=== PATIENT | female | born 1960 | race Asian ===

== ENCOUNTER → 2017-10-09 11:23 | Outpatient (CLI) | payer OTHER, SELFPAY ==
[2017-10-09 12:52] LABS: Hemoglobin A1C% w Est Avg Glu 8.9 % (4.0-6.0)
[2017-10-09 13:12] LABS: Calcium 9.6 mg/dL (8.4-10.2); Estimated Glomerular Filt Rate > 60.0 mL/min (>60); Glucose 110 mg/dL (70-100); HEMOLYSIS < 15 (0-50); Sodium 139 mmol/L (137-145)
[2017-10-09 13:20] LABS: Potassium 5.4 mmol/L (3.4-5.1)
[2017-10-09 13:39] LABS: TSH w/ Reflex to FT4 0.38 uIU/mL (0.47-4.68)
[2017-10-09 14:04] LABS: Free T4, Direct Thyroxine 1.47 ng/dL (0.78-2.19)
== END ==
PROVIDERS: PCP Family Medicine; Visit Provider Family Medicine
DX: E11.65 Type 2 diabetes mellitus with hyperglycemia (principal); E03.9 Hypothyroidism, unspecified
CPT/HCPCS: 36415; 80048; 83036; 84439; 84443

== ENCOUNTER → 2018-01-09 07:38 | Outpatient (CLI) | payer OTHER, SELFPAY ==
[2018-01-09 08:34] LABS: Add Manual Diff / Slide Review NO; Basophils Percent Auto 0.8 % (0-2); Hematocrit 43.1 % (36-46); Hemoglobin 14.8 g/dL (12.0-16.0); Lymphocytes Percent Auto 38.8 % (25-40); Mean Corpuscular HGB Conc 34.4 % (30-36); Mean Corpuscular Hemoglobin 32.5 PG (26-34); Mean Corpuscular Volume 94.4 fL (80-100); Monocytes Percent Auto 5.7 % (3-14); Neutrophils Absolute Auto 2900 /uL (3000-5900); Neutrophils Percent Auto 49.7 % (50-75); Platelet Count 282 X10^3/uL (150-400); Red Blood Cell Count 4.56 X10^6/uL (4.0-5.2); Red Cell Distribution Width 12.9 % (11.6-14.8); White Blood Cell Count 5.9 X10^3/uL (4.5-11.0)
[2018-01-09 09:06] LABS: Hemoglobin A1C% w Est Avg Glu 7.6 % (4.0-6.0)
[2018-01-09 09:10] LABS: Blood Urea Nitrogen 28 mg/dL (7-17); Calcium 10.1 mg/dL (8.4-10.2); Carbon Dioxide 29 mmol/L (22-32); Chloride 103 mmol/L (98-107); Cholesterol 170 mg/dL (140-199); Estimated Glomerular Filt Rate > 60.0 mL/min (>60); Glucose 124 mg/dL (70-100); HDL Cholesterol 85 mg/dL (40-60); HEMOLYSIS < 15 (0-50); LDL Cholesterol Calculated 66 mg/dL (<100); Potassium 5.1 mmol/L (3.4-5.1); Sodium 141 mmol/L (137-145); Triglycerides 97 mg/dL (35-150)
[2018-01-09 09:44] LABS: TSH w/ Reflex to FT4 1.74 uIU/mL (0.47-4.68)
== END ==
PROVIDERS: Family Provider Family Medicine; PCP Family Medicine; Visit Provider Family Medicine
DX: E11.65 Type 2 diabetes mellitus with hyperglycemia (principal); E03.9 Hypothyroidism, unspecified; E87.5 Hyperkalemia; D75.1 Secondary polycythemia
CPT/HCPCS: 36415; 80048; 80061; 83036; 84443; 85025

== ENCOUNTER → 2018-04-06 08:20 | Outpatient (CLI) | payer OTHER, SELFPAY ==
[2018-04-06 10:14] LABS: Hemoglobin A1C% w Est Avg Glu 8.6 % (4.0-6.0)
== END ==
PROVIDERS: PCP Family Medicine; Visit Provider Family Medicine
DX: E11.65 Type 2 diabetes mellitus with hyperglycemia (principal)
CPT/HCPCS: 36415; 83036

== ENCOUNTER → 2018-06-15 08:05 | Outpatient (CLI) | payer OTHER, SELFPAY ==
[2018-06-15 09:17] LABS: Cholesterol 170 mg/dL (140-199); HDL Cholesterol 94 mg/dL (40-60); LDL Cholesterol Calculated 55 mg/dL (<100); Triglycerides 106 mg/dL (35-150)
== END ==
PROVIDERS: Family Provider Family Medicine; PCP Family Medicine; Visit Provider Family Medicine
DX: I63.30 Cerebral infarction due to thrombosis of unspecified cerebral artery (principal)
CPT/HCPCS: 36415; 80061

== ENCOUNTER → 2018-07-09 13:32 | Outpatient (CLI) | payer OTHER, SELFPAY | PROVIDERS: Family Provider Family Medicine; PCP Family Medicine; Visit Provider Family Medicine | DX: Z12.31 Encounter for screening mammogram for malignant neoplasm of breast (principal); Z53.9 Procedure and treatment not carried out, unspecified reason ==

== ENCOUNTER → 2018-11-22 13:20 | Outpatient (CLI) | payer OTHER, SELFPAY ==
--- NOTE | 2018-11-22 | DI.MG.S_ITS ---
BILATERAL DIGITAL SCREENING MAMMOGRAM 3D/2D WITH CAD: 11/22/2018 CLINICAL: Routine screening. Comparison is made to exams dated: 04/12/2015 mammogram, 12/27/2012 mammogram, and 03/07/2011 mammogram - [facility]. The tissue of both breasts is heterogeneously dense. This may lower the sensitivity of mammography. Current study was also evaluated with a Computer Aided Detection (CAD) system. No significant masses, calcifications, or other findings are seen in either breast. There has been no significant interval change. IMPRESSION: NEGATIVE There is no mammographic evidence of malignancy. A 1 year screening mammogram is recommended. This exam was interpreted at Station ID: [id number]. NOTE: For mammograms, a report in lay terms will be sent to the patient. Approximately 15% of breast malignancies will not be visualized mammographically. In the management of a palpable breast mass, a negative mammogram must not discourage biopsy of a clinically suspicious lesion. Electronically Signed By: Sarah casas/león:11/22/2018 15:04:16 letter sent: Normal Exam ACR BI-RADS Category 1: Negative 3341F
== END ==
PROVIDERS: Family Provider Family Medicine; PCP Family Medicine; Visit Provider Family Medicine
DX: Z12.31 Encounter for screening mammogram for malignant neoplasm of breast (principal)
CPT/HCPCS: 77063; 77067

== ENCOUNTER → 2019-03-01 08:01 | Outpatient (CLI) | payer OTHER, SELFPAY ==
[2019-03-01 09:34] LABS: Chloride 103 mmol/L (98-107); HEMOLYSIS < 15 (0-50)
[2019-03-01 09:39] LABS: Alanine Aminotransferase 22 IU/L (9-52); Albumin 4.8 g/dL (3.5-5.0); Albumin Globulin Ratio 1.5 (1.0-2.8); Alkaline Phosphatase 64 U/L (38-126); Aspartate Aminotransferase 22 IU/L (14-36); Bilirubin Total 0.4 mg/dL (0.2-1.3); Blood Urea Nitrogen 20 mg/dL (7-17); Calcium 10.4 mg/dL (8.4-10.2); Carbon Dioxide 28 mmol/L (22-32); Estimated Glomerular Filt Rate > 60.0 mL/min (>60); Globulin 3.1 g/dL (1.7-4.1); Glucose 118 mg/dL (80-110); Potassium 4.5 mmol/L (3.4-5.1); Sodium 143 mmol/L (137-145); Total Protein 7.9 g/dL (6.3-8.2)
[2019-03-01 09:40] LABS: C-Reactive Protein Quant < 0.5 mg/dL (<1.0); Rheumatoid Factor < 8.6 IU/mL (<12.0)
[2019-03-01 09:45] LABS: Erythrocyte Sedimentation Rate 3 MM/HR (0-20)
[2019-03-01 09:49] LABS: Hemoglobin A1C% w Est Avg Glu 9.3 % (4.0-6.0)
[2019-03-04 22:57] LABS: ANA Screen, IFA NEGATIVE (NEGATIVE)
== END ==
PROVIDERS: Family Provider Family Medicine; PCP Family Medicine; Visit Provider Family Medicine
DX: I63.30 Cerebral infarction due to thrombosis of unspecified cerebral artery (principal); R80.9 Proteinuria, unspecified; M19.041 Primary osteoarthritis, right hand; M19.042 Primary osteoarthritis, left hand; E11.29 Type 2 diabetes mellitus with other diabetic kidney complication
CPT/HCPCS: 36415; 80053; 83036; 85651; 86038; 86140; 86430

== ENCOUNTER → 2020-08-28 07:57 | Outpatient (CLI) | payer MEDICARE, OTHER, SELFPAY ==
[2020-08-28 09:32] LABS: Cholesterol 257 mg/dL (140-199); Creatinine Urine Random 28.5 mg/dL; HDL Cholesterol 99 mg/dL (40-60); Hemoglobin A1C% w Est Avg Glu 11.6 % (4.0-6.0); LDL Cholesterol Calculated 122 mg/dL (<100); Triglycerides 182 mg/dL (35-150)
[2020-08-28 10:16] LABS: Microalbumi Creatinin Ratio Ur 1596.4 ug/mg CR (<30); Microalbumin Urine Random 45.5 mg/dL (0-1.6)
[2020-08-28 10:45] LABS: TSH w/ Reflex to FT4 2.42 uIU/mL (0.47-4.68)
[2020-08-29 13:31] LABS: Hep C Virus Ab w/Reflex Quant NEGATIVE s/c (NEGATIVE)
== END ==
PROVIDERS: Family Provider Family Medicine; PCP Family Medicine; Referring Provider Family Medicine; Visit Provider Family Medicine
DX: E11.3293 Type 2 diabetes mellitus with mild nonproliferative diabetic retinopathy without macular edema, bilateral (principal); Z79.4 Long term (current) use of insulin
CPT/HCPCS: 36415; 80061; 82043; 82570; 83036; 84443; 86803

== ENCOUNTER → 2021-09-06 08:43 | Outpatient (CLI) | payer MEDICARE, OTHER, SELFPAY ==
[2021-09-06 09:52] LABS: Add Manual Diff / Slide Review NO; Basophils Absolute Auto 100 /uL (0-100); Basophils Percent Auto 0.9 % (0-2); Eosinophils Absolute Auto 200 /uL (0-450); Eosinophils Percent Auto 3.4 % (2-4); Hematocrit 44.8 % (36-46); Hemoglobin 15.7 g/dL (12.0-16.0); Lymphocytes Absolute Auto 1800 /uL (1100-4500); Lymphocytes Percent Auto 27.7 % (25-40); Mean Corpuscular Volume 91.3 fL (80-100); Monocytes Absolute Auto 400 /uL (0-900); Monocytes Percent Auto 5.7 % (3-14); Neutrophils Absolute Auto 4000 /uL (1500-7000); Neutrophils Percent Auto 62.3 % (50-75); Platelet Count 278 X10^3/uL (150-400); Red Blood Cell Count 4.91 X10^6/uL (4.0-5.2); Red Cell Distribution Width 13.1 % (11.6-14.8); White Blood Cell Count 6.5 X10^3/uL (4.5-11.0)
[2021-09-06 10:23] LABS: Alanine Aminotransferase 18 IU/L (<35); Albumin 4.7 g/dL (3.5-5.0); Albumin Globulin Ratio 1.5 (1.0-2.8); Alkaline Phosphatase 71 U/L (38-126); Aspartate Aminotransferase 20 IU/L (14-36); BUN Creatinine Ratio 32.1 (6-22); Bilirubin Total 0.4 mg/dL (0.2-1.3); Blood Urea Nitrogen 17 mg/dL (7-17); Calcium 9.6 mg/dL (8.4-10.2); Carbon Dioxide 26 mmol/L (22-32); Chloride 103 mmol/L (98-107); Cholesterol 263 mg/dL (140-199); Estimated Glomerular Filt Rate > 60 mL/min (>60); Globulin 3.1 g/dL (1.7-4.1); Glucose 286 mg/dL (80-110); HDL Cholesterol 86 mg/dL (40-60); HEMOLYSIS < 15 (0-50); LDL Cholesterol Calculated 149 mg/dL (<100); Potassium 4.8 mmol/L (3.4-5.1); Sodium 138 mmol/L (137-145); Total Protein 7.8 g/dL (6.3-8.2); Triglycerides 141 mg/dL (35-150)
[2021-09-06 10:40] LABS: TSH w/ Reflex to FT4 2.36 uIU/mL (0.47-4.68)
[2021-09-07 07:57] LABS: Varicella IgG Antibody 231 index (Immune >165)
== END ==
PROVIDERS: Family Provider Family Medicine; PCP Family Medicine; Referring Provider Family Medicine; Visit Provider Family Medicine
DX: E11.3293 Type 2 diabetes mellitus with mild nonproliferative diabetic retinopathy without macular edema, bilateral (principal); I63.30 Cerebral infarction due to thrombosis of unspecified cerebral artery; Z79.4 Long term (current) use of insulin; Z20.9 Contact with and (suspected) exposure to unspecified communicable disease; E03.9 Hypothyroidism, unspecified
CPT/HCPCS: 36415; 80053; 80061; 83036; 84443; 85025; 86787

== ENCOUNTER → 2021-12-02 14:22 | Outpatient (CLI) | payer MEDICARE, OTHER, SELFPAY ==
--- NOTE | 2021-12-02 | DI.MG.S_ITS ---
BILATERAL DIGITAL SCREENING MAMMOGRAM 3D/2D WITH CAD: 12/02/2021 CLINICAL: Routine screening. Comparison is made to exams dated: 11/22/2018 mammogram, 04/12/2015 mammogram, 12/27/2012 mammogram, and 03/07/2011 mammogram - [facility]. The tissue of both breasts is heterogeneously dense. This may lower the sensitivity of mammography. Current study was also evaluated with a Computer Aided Detection (CAD) system. No significant masses, calcifications, or other findings are seen in either breast. There has been no significant interval change. IMPRESSION: NEGATIVE There is no mammographic evidence of malignancy. A 1 year screening mammogram is recommended. Based on the Tyrer Cuzick model (a risk assessment model) the patient's lifetime risk is 11.8% and her 10 year risk is 5.3%. According to the ACR, ACS, and NCCN guidelines, an annual breast MRI exam along with mammogram is recommended if the patient's lifetime risk is 20% or greater. This exam was interpreted at Station ID: [id number]. NOTE: For mammograms, a report in lay terms will be sent to the patient. Approximately 15% of breast malignancies will not be visualized mammographically. In the management of a palpable breast mass, a negative mammogram must not discourage biopsy of a clinically suspicious lesion. Electronically Signed By: Gallo Mendoza M.D., jr/león:12/02/2021 14:54:31 letter sent: Normal Exam ACR BI-RADS Category 1: Negative 3341F
== END ==
PROVIDERS: Family Provider Family Medicine; PCP Family Medicine; Referring Provider Family Medicine; Visit Provider Family Medicine
DX: Z12.31 Encounter for screening mammogram for malignant neoplasm of breast (principal)
CPT/HCPCS: 77063; 77067

== ENCOUNTER 2021-12-05 10:40 | Observation (INO) | payer MEDICARE, OTHER, SELFPAY ==
[2021-12-05] VITALS (15 sets, daily range): BP systolic 147–245; BP diastolic 78–118; PULSE 81–103; RESP 9–21; TEMP 36.4–36.9; O2SAT 93–97; BMI 24.9; BMI 23.3
--- NOTE | 2021-12-05 10:53 | DI.CT.S_ITS ---
PROCEDURE: CT STROKE INDICATIONS: left sided [id number] TECHNIQUE: Noncontrast 4.5 mm thick angled axial sections acquired from the foramen magnum to the vertex, with coronal reformats. For radiation dose reduction, the following was used: automated exposure control, adjustment of mA and/or kV according to patient size. COMPARISON: [facility], MR, BRAIN WITHOUT CONTRAST, 03/27/2017, 10:46. [facility], CT, HEAD WITHOUT CONTRAST, 03/27/2017, 8:29. FINDINGS: Image quality: Excellent. CSF spaces: Basal cisterns are patent. The ventricles are symmetric in size and shape. A soft tissue attenuating lesion is seen in the right frontal extra-axial subdural space measuring up to 5 mm in thickness (18/2) that appears stable in size when compared to the prior exams from 03/27/2017. Brain: No acute intracranial hemorrhage or mass effect. Subtle hypoattenuation is seen in the region of the previously described small left thalamic infarct. There is cerebral volume loss for age, with resultant ventricular and sulcal prominence. There are periventricular and deep white matter chronic small vessel ischemic changes. There is intracranial internal carotid artery atherosclerosis. Skull and face: Calvarium and visualized facial bones appear intact, without suspicious lesions. Sinuses: Visualized sinuses and mastoids are clear. IMPRESSION: 1. No acute intracranial abnormality. 2. Chronic left thalamic infarct is not well visualized. 3. Right frontal convexity extra-axial mass lesion is grossly stable in size when compared to the CT from 03/27/2017 and is most likely a meningioma. Recommend MRI of the brain with and without contrast for further evaluation on a nonemergent basis. Findings were discussed with the referring physician, Dr. Hook, by telephone on 12/05/2021 at 11:18 AM. This study fulfills neurological imaging criteria for inclusion or exclusion of acute stroke therapies based on available published neurological guidelines. Dictated by: Samuel Fish M.D. on 12/05/2021 at 11:09 Approved by: Samuel Fish M.D. on 12/05/2021 at 11:18
--- NOTE | 2021-12-05 10:54 | DI.CT.S_ITS ---
PROCEDURE: CT ANGIO HEAD AND NECK INDICATIONS: left sided [id number] TECHNIQUE: After the administration of intravenous contrast, 1 mm thick sections acquired from the aortic arch through the [place] of [place]. Post-contrast 4.5 mm thick sections then re-acquired from the foramen magnum to the vertex. 3-dimensional zkygirn-pzwhtuktq-hymgyjsvqk (MIP) and/or volume rendering reformats were acquired of the central intracranial vasculature and neck separately. For radiation dose reduction, the following was used: automated exposure control, adjustment of mA and/or kV according to patient size. COMPARISON: MR, ANGIO NECK WITH CONTRAST, 03/27/2017, 16:22. MR, ANGIO HEAD WITHOUT CONTRAST, 03/27/2017, 16:11. [facility], MR, BRAIN WITHOUT CONTRAST, 03/27/2017, 10:46. [facility], CT, CT STROKE, 12/05/2021, 10:56. FINDINGS: Image quality: Excellent. BRAIN: CSF spaces: Ventricles are normal in size and shape. Basal cisterns are patent. No extra-axial fluid collections. Brain: No midline shift. No intracranial bleeds or masses. Carey-white matter interface appears intact. Skull and face: Calvarium and facial bones appear intact, without suspicious lesions. Orbits appear normal. Sinuses: Sinuses and mastoids are clear. HEAD CT ANGIOGRAPHY: Anterior circulation: Intracranial internal carotid arteries are normal in size and flow. The flow within the paired anterior cerebral arteries is normal and symmetric. The flow within the middle cerebral arteries is normal and symmetric. The anterior communicating artery is seen. No aneurysms are seen. Posterior circulation: There is a left vertebral artery dominance. Visualized portions of the vertebral arteries demonstrate normal caliber, and join to form a normal appearing basilar artery. Flow within the posterior cerebral arteries is normal and symmetric. No aneurysms are seen. NECK CT ANGIOGRAPHY: Carotid system: The great vessels demonstrate a conventional anatomy as they arise from the aortic arch. The origins of the common carotid arteries appear patent. The common carotid arteries demonstrate normal caliber and courses. The bifurcation regions are both widely patent. The internal carotid arteries demonstrate normal calibers and courses. Posterior circulation: The origins of the vertebral arteries both appear widely patent. The more superior extracranial portions of both vertebral arteries also demonstrate normal courses and calibers. They join to form a normal appearing basilar artery. Soft tissues: Visualized neck soft tissues demonstrate no suspicious abnormalities. Bones: No suspicious bony lesions. Visualized cervical spine appears normally aligned. IMPRESSION: 1. No acute intracranial process. 2. No areas of hemodynamically significant stenosis, vascular occlusion or aneurysmal dilation within the anterior or posterior circulation. 3. No areas of hemodynamically significant stenosis, vascular occlusion or aneurysmal dilation within the neck vasculature. Any quantitative measurements of stenosis were performed using NASCET criteria. Dictated by: Willow Monaco M.D. on 12/05/2021 at 11:35 Approved by: Willow Monaco M.D. on 12/05/2021 at 11:44
[2021-12-05 11:07] LABS: Add Manual Diff / Slide Review NO; Basophils Absolute Auto 100 /uL (0-100); Basophils Percent Auto 1.1 % (0-2); Eosinophils Absolute Auto 200 /uL (0-450); Eosinophils Percent Auto 2.6 % (2-4); Hematocrit 43.5 % (36-46); Hemoglobin 15.1 g/dL (12.0-16.0); Lymphocytes Absolute Auto 2200 /uL (1100-4500); Lymphocytes Percent Auto 27.9 % (25-40); Mean Corpuscular HGB Conc 34.7 % (30-36); Mean Corpuscular Hemoglobin 31.8 PG (26-34); Mean Corpuscular Volume 91.5 fL (80-100); Monocytes Absolute Auto 500 /uL (0-900); Monocytes Percent Auto 6.5 % (3-14); Neutrophils Absolute Auto 4900 /uL (1500-7000); Neutrophils Percent Auto 61.9 % (50-75); Platelet Count 290 X10^3/uL (150-400); Red Blood Cell Count 4.75 X10^6/uL (4.0-5.2); White Blood Cell Count 7.9 X10^3/uL (4.5-11.0)
--- NOTE | 2021-12-05 11:11 | ED.NEUROSD ---
HPI - Neuro Symptoms/Deficit General Chief Complaint: Neuro Symptoms/Deficit Stated Complaint: Numbness on left side/ hx of stroke Time Seen by Provider: 12/05/21 10:53 History of Present Illness HPI Narrative: Patient is a 61-year-old female history of CVA in 2017 on her right side presenting today with left-sided weakness and left leg weakness. She says she went to bed normal last night she woke up and feel quite right. She got up and started walking around noticed that her left side was weakness. She had some difficulty with numbness as well. She says she does not feel quite right. She thought it might get better which is by she waited to come in. She woke up around 730 this morning over last known well was last night. She states that she is supposed to take aspirin but it upsets her stomach and she is supposed to take a statin however it makes her legs cramp so she has stopped taking all of these medications. She is noted to be extremely hypertensive. On Anticoagulants: No Related Data Home Medications Medication Instructions Recorded Confirmed doxycycline hyclate 100 mg tablet 1 tab PO DAILY PRN Rash 12/05/21 12/05/21 insulin glargine 100 unit/mL (3 26 unit SUBCUT DAILY 12/05/21 12/05/21 mL) subcutaneous pen (Lantus Solostar U-100 Insulin) lisinopril 2.5 mg tablet 2.5 mg PO QDAY 12/05/21 12/05/21 Previous Rx's Medication Instructions Recorded [TEST STRIPS] #1 pkg 12/28/17 blood sugar diagnostic (Blood #100 ea 01/22/18 Glucose Test strips) levothyroxine 88 mcg tablet 88 mcg PO DAILY #90 tabs 01/22/18 loratadine 10 mg tablet 10 mg PO QDAY #90 tabs 01/22/18 metformin 1,000 mg tablet 1,000 mg PO BIDCC #180 tabs 01/22/18 (Glucophage) Allergies Allergy/AdvReac Type Severity Reaction Status Date / Time latex [LATEX] Allergy Mild ITCHY RASH Verified 12/05/21 14:44 oxycodone [OXYCODONE] AdvReac Unknown SEVERE Verified 12/05/21 14:44 STOMACH PAIN MEDIPORE TAPE AdvReac Unknown RASH/BLISTE Uncoded 10/22/17 10:50 RS Review of Systems Review of Systems Narrative: GENERAL: Denies chills, fatigue, malaise, fever, sweats, travel HEENT: Denies sinus pain, ear pain, sore throat, difficulty swallowing, neck pain RESPIRATORY: Denies dyspnea, cough, wheezing, hemoptysis, sputum. CARDIOVASCULAR: Denies chest pain, palpitations, orthopnea, edema GASTROINTESTINAL: Denies nausea, vomiting, abdominal pain, diarrhea, constipation, melena. : Denies dysuria, frequency, incontinence, hematuria, urinary retention, flank pain. MUSCULOSKELETAL: Denies weakness, joint pain, or bony pain SKIN: No rash, no erythema, no pruritus NEUROLOGIC: See HPI PSYCHIATRIC: No concerning psychosocial issues. 12 point review of systems is negative except for those stated above and HPI Hematologic/Lymphatic On Anticoagulants: No Patient History Medical History History of diabetes mellitus History of hypothyroidism History of rosacea History of seasonal allergies History of stroke Trigger finger of right hand Trigger finger, left Surgical History History of ectopic History of third molar tooth extraction Status post appendectomy Status post ovarian cystectomy Status post tubal ligation [place] teeth removed Family History Father Heart disease Mother Heart attack Brother No problems noted. Brother No problems noted. Social History marital status: household members: spouse lives independently: Yes caregiver/support person: No pets and animals: No education level: high school seatbelt use: always helmet use: Yes water heater temp set < 120 deg: Yes working smoke detector in home: Yes fire extinguisher in home: Yes carbon monox detector in home: No firearms in home: No Smoking Status: Never smoker alcohol intake: never substance use type: does not use Smoking Status: Never smoker Exam Initial Vital Signs Initial Vital Signs: Vital Signs Pulse Rate 103 H 12/05/21 10:45 Respiratory Rate 16 12/05/21 10:45 Blood Pressure 245/118 H 12/05/21 10:45 Pulse Oximetry 97 12/05/21 10:45 Oxygen Delivery Method 12/05/21 10:45 Oxygen Flow Rate 97.8 07/18/22 10:45 GENERAL: Alert pleasant 61-year-old female no acute distress and in [no acute] distress. HEENT: Head atraumatic,EOMI, pupils reactive, face symmetric, [moist] mucous membranes CARDIOVASCULAR: Regular rate and rhythm without murmurs, rubs or gallops. RESPIRATORY: Breath sounds equal bilaterally, no wheezes rales or rhonchi. ABDOMEN: Soft, nontender. Normoactive bowel sounds all 4 quadrants. No guarding or rebound. EXTREMITIES: Normal range of motion, no clubbing or edema. Neurovascularly intact NEUROLOGICAL: Alert and oriented x4.Normal gait and speech. Cranial nerves II through XII grossly intact. Left leg is drifts mild weakness noted difficult to tell if there is some very mild aphasia. No facial droop SKIN: Warm, dry, no laceration, no petechiae, no rashes or lesions. Scores NIH Stroke Scale Level of Conciousness: Alert, keenly responsive Ask month/age: Answers both questions correctly. Open/close eyes, close hand: Performs both tasks correctly Best gaze horizontal: Normal Visual nichols: No visual loss Facial palsy: Normal symetrical movement Left arm drift: No drift for full 10 sec Right arm drift: No drift for full 10 sec Left leg drift: Drifts down, not to bed Right leg drift: No drift for full 5 sec Limb ataxia: Present in one limb Sensory on face/arms/legs: Normal, no sensory loss Best language: No aphasia, normal Dysarthria: Normal Extinction or inattention: No abnormality Total NIH Stroke scale score: 2 Course Orders Ordered: ED Orders 12/05/21 10:53 CT Stroke Stat EKG-12 Lead Stat 12/05/21 10:54 CT angio head and neck Stat 12/05/21 11:00 Complete Blood Count AUTO DIFF Stat Comprehensive Metabolic Panel Stat Ethanol (ETOH) Stat Partial Thromboplastin Time Stat Prothrombin Time INR Stat Troponin & CK Cardiac Panel Stat 12/05/21 12:11 MR head/brain wo/w con Stat 12/05/21 12:24 Urine Drug Screen, Rapid Stat Acetaminophen (Acetaminophen 325 Mg Tablet) 650 mg PO Q6HR PRN PRN Reason: Fever/Mild Pain (1-3) Sodium Chloride (Normal Saline 0.9%) 1,000 mls @ 150 mls/hr IV CONT MEHRAN Last Infusion: 12/05/21 15:22 Dose: 150 mls/hr Documented By: Infusion: 12/05/21 14:48 Dose: 150 mls/hr Documented By: Admin: 12/05/21 11:27 Dose: 150 mls/hr Documented By: CARRIE Dextrose ([id number]) 250 mls @ 999 mls/hr IV PRN PRN PRN Reason: Hypoglycemia Insulin Glargine (Insulin Glargine 100 Unit/Ml 3ml Pen) 26 unit SUBCUT DAILY MEHRAN Insulin Human Lispro (Insulin Lispro 100 Unit/Ml 3ml Vial) 0 unit SUBCUT ACHS MEHRAN; Protocol Labetalol HCl (Labetalol 20 Mg/4 Ml Syringe) 5 mg IV Q4HR PRN PRN Reason: SBP>220 or DBP>120 Levothyroxine Sodium (Levothyroxine 88 Mcg Tablet) 88 mcg PO 0600 MEHRAN Lisinopril (Lisinopril 5 Mg Tablet) 2.5 mg PO DAILY MEHRAN Loratadine (Loratadine 10 Mg Tablet) 10 mg PO DAILY MEHRAN Ondansetron HCl (Ondansetron 4 Mg/2 Ml Inj) 4 mg IV Q8HR PRN PRN Reason: Nausea And Vomiting Discontinued Medications Dextrose (Dextrose 50 % In Water 25 Gm/50 Ml Syringe) 25 gm IV PRN PRN PRN Reason: Hypoglycemia Vital Signs Vital signs: Vital Signs - 8 hr 12/05/21 11:19 12/05/21 11:19 12/05/21 11:30 Pulse Rate 93 H Respiratory Rate 21 Blood Pressure 208/100 H 182/87 H Pulse Oximetry 96 12/05/21 11:30 12/05/21 12:00 12/05/21 12:00 Pulse Rate 88 89 Respiratory Rate 18 16 Blood Pressure 178/87 H Pulse Oximetry 97 96 12/05/21 12:16 12/05/21 12:16 12/05/21 12:24 Pulse Rate 93 H 86 Respiratory Rate 21 12 Blood Pressure 233/103 H Pulse Oximetry 96 96 12/05/21 12:24 12/05/21 12:30 12/05/21 12:30 Pulse Rate 88 Respiratory Rate 9 L Blood Pressure 192/84 H 189/93 H Pulse Oximetry 96 12/05/21 12:48 12/05/21 12:48 07/18/22 13:00 Pulse Rate 89 Respiratory Rate 15 Blood Pressure 190/96 H 164/83 H Pulse Oximetry 95 12/05/21 13:00 12/05/21 13:30 12/05/21 13:30 Pulse Rate 87 87 Respiratory Rate 17 16 Blood Pressure 201/98 H Pulse Oximetry 96 96 MDM - Neuro Symptoms/Deficit Lab Data Result diagrams: 12/05/21 11:00 12/05/21 11:00 Labs: Lab Results 12/05/21 12/05/21 12/05/21 Range/Units 11:00 11:00 11:00 WBC 7.9 (4.5-11.0) X10^3/uL RBC 4.75 (4.0-5.2) X10^6/uL Hgb 15.1 (12.0-16.0) g/dL Hct 43.5 (36-46) % MCV 91.5 (80-100) fL MCH 31.8 (26-34) PG MCHC 34.7 (30-36) % RDW 13.0 (11.6-14.8) % Plt Count 290 (150-400) X10^3/uL Neut % (Auto) 61.9 (50-75) % Lymph % (Auto) 27.9 (25-40) % [place] % (Auto) 6.5 (3-14) % Eos % (Auto) 2.6 (2-4) % Baso % (Auto) 1.1 (0-2) % Neut # (Auto) 4900 (2705-3877) /uL Lymph # (Auto) 2200 (5021-5426) /uL [place] # (Auto) 500 (0-900) /uL Eos # (Auto) 200 (0-450) /uL Baso # (Auto) 100 (0-100) /uL PT 9.8 L (10.1-12.7) SECONDS INR 0.9 (0.9-1.3) APTT 33 (26.4-36.2) SECONDS Sodium 136 L (137-145) mmol/L Potassium 4.3 (3.4-5.1) mmol/L Chloride 99 (98-107) mmol/L Carbon Dioxide 27 (22-32) mmol/L BUN 14 (7-17) mg/dL Creatinine 0.53 (0.52-1.04) mg/dL Estimated GFR > 60 (>60) mL/min BUN/Creatinine Ratio 26.4 H (6-22) Glucose 289 H (80-110) mg/dL Calcium 9.5 (8.4-10.2) mg/dL Total Bilirubin 0.4 (0.2-1.3) mg/dL AST 23 (14-36) IU/L ALT 21 (<35) IU/L Alkaline Phosphatase 82 (38-126) U/L Total Creatine Kinase 65 (30-135) U/L CK-MB (CK-2) TNP CK-MB (CK-2) Rel Index TNP Troponin I < 0.012 (0.01-0.034) ng/mL Total Protein 8.3 H (6.3-8.2) g/dL Albumin 4.9 (3.5-5.0) g/dL Globulin 3.4 (1.7-4.1) g/dL Albumin/Globulin Ratio 1.4 (1.0-2.8) U Opiates 300ng/mL cut (Negative) Ur Oxycodone Screen (Negative) Urine Methadone Screen (Negative) Ur Barbiturates Screen (Negative) U Tricyclic Antidepress (Negative) Ur Phencyclidine Scrn (Negative) Ur Amphetamines Screen (Negative) U Methamphetamines Scrn (Negative) Ur MDMA Scrn (Ecstasy) (Negative) U Benzodiazepines Scrn (Negative) Urine Cocaine Screen (Negative) U Marijuana (THC) Screen (Negative) Ethyl Alcohol < 10 ( - 10) mg/dL 12/05/21 Range/Units 12:24 WBC (4.5-11.0) X10^3/uL RBC (4.0-5.2) X10^6/uL Hgb (12.0-16.0) g/dL Hct (36-46) % MCV (80-100) fL MCH (26-34) PG MCHC (30-36) % RDW (11.6-14.8) % Plt Count (150-400) X10^3/uL Neut % (Auto) (50-75) % Lymph % (Auto) (25-40) % [place] % (Auto) (3-14) % Eos % (Auto) (2-4) % Baso % (Auto) (0-2) % Neut # (Auto) (3220-1123) /uL Lymph # (Auto) (7150-9253) /uL [place] # (Auto) (0-900) /uL Eos # (Auto) (0-450) /uL Baso # (Auto) (0-100) /uL PT (10.1-12.7) SECONDS INR (0.9-1.3) APTT (26.4-36.2) SECONDS Sodium (137-145) mmol/L Potassium (3.4-5.1) mmol/L Chloride (98-107) mmol/L Carbon Dioxide (22-32) mmol/L BUN (7-17) mg/dL Creatinine (0.52-1.04) mg/dL Estimated GFR (>60) mL/min BUN/Creatinine Ratio (6-22) Glucose (80-110) mg/dL Calcium (8.4-10.2) mg/dL Total Bilirubin (0.2-1.3) mg/dL AST (14-36) IU/L ALT (<35) IU/L Alkaline Phosphatase (38-126) U/L Total Creatine Kinase (30-135) U/L CK-MB (CK-2) CK-MB (CK-2) Rel Index Troponin I (0.01-0.034) ng/mL Total Protein (6.3-8.2) g/dL Albumin (3.5-5.0) g/dL Globulin (1.7-4.1) g/dL Albumin/Globulin Ratio (1.0-2.8) U Opiates 300ng/mL cut Negative (Negative) Ur Oxycodone Screen Negative (Negative) Urine Methadone Screen Negative (Negative) Ur Barbiturates Screen Negative (Negative) U Tricyclic Antidepress Negative (Negative) Ur Phencyclidine Scrn Negative (Negative) Ur Amphetamines Screen Negative (Negative) U Methamphetamines Scrn Negative (Negative) Ur MDMA Scrn (Ecstasy) Negative (Negative) U Benzodiazepines Scrn Negative (Negative) Urine Cocaine Screen Negative (Negative) U Marijuana (THC) Screen Negative (Negative) Ethyl Alcohol ( - 10) mg/dL Point of Care Testing Glucose POC 97 Urine Dip Bedside Urine Glucose 100 mg/dl Bedside Urine Bilirubin - Negative Bedside Urine Ketone - Negative Urine Specific [place] 1.010 Bedside Urine Occult Blood - Negative Bedside Urine pH 6.0 Bedside Urine Protein + 30 Bedside Urine Urobilinogen - Negative Bedside Urine Nitrite - Negative Bedside Urine Leukocytes - Negative Esterase Imaging Data CT scan - head: Radiologist's Impression: Signed Patient: Drew Decker MR#: [id number] : 1960 Acct:[id number] Age/Sex: 61 / F Date of Service: 12/05/21 Loc: ED Accession Number: [id number] ?? Procedure: CT Stroke Ordering Provider: Lanie Hook D.O. PROCEDURE:? CT STROKE ? INDICATIONS:? left sided [id number] ? TECHNIQUE:? Noncontrast 4.5 mm thick angled axial sections acquired from the foramen magnum to the vertex, with coronal reformats.? For radiation dose reduction, the following was used:? automated exposure control, adjustment of mA and/or kV according to patient size.? ? COMPARISON:? [facility], MR, BRAIN WITHOUT CONTRAST, 03/27/2017, 10:46.? [facility], CT, HEAD WITHOUT CONTRAST, 03/27/2017, 8:29. ? FINDINGS:? Image quality:? Excellent.? ? CSF spaces:? Basal cisterns are patent.? The ventricles are symmetric in size and shape.? A soft tissue attenuating lesion is seen in the right frontal extra-axial subdural space measuring up to 5 mm in thickness (18/2) that appears stable in size when compared to the prior exams from 03/27/2017. ? Brain:? No acute intracranial hemorrhage or mass effect.? Subtle hypoattenuation is seen in the region of the previously described small left thalamic infarct.? There is cerebral volume loss for age, with resultant ventricular and sulcal prominence.? There are periventricular and deep white matter chronic small vessel ischemic changes.? There is intracranial internal carotid artery atherosclerosis.? ? Skull and face:? Calvarium and visualized facial bones appear intact, without suspicious lesions.? ? Sinuses:? Visualized sinuses and mastoids are clear.? ? IMPRESSION:? 1. No acute intracranial abnormality. 2. Chronic left thalamic infarct is not well visualized.? 3. Right frontal convexity extra-axial mass lesion is grossly stable in size when compared to the CT from 03/27/2017 and is most likely a meningioma.? Recommend MRI of the brain with and without contrast for further evaluation on a nonemergent basis.? ? Findings were discussed with the referring physician, Dr. Hook, by telephone on 12/05/2021 at 11:18 AM. ? ? This study fulfills neurological imaging criteria for inclusion or exclusion of acute stroke therapies based on available published neurological guidelines.? ? ? Dictated by: Samuel Fish M.D. on 12/05/2021 at 11:09? CTA - brain/neck: Radiologist's Impression: CT Scan Report Signed Patient: Drew Decker MR#: [id number] : 1960 Acct:[id number] Age/Sex: 61 / F Date of Service: 12/05/21 Loc: ED Accession Number: [id number] ?? Procedure: CT angio head and neck Ordering Provider: Lanie Hook D.O. PROCEDURE:? CT ANGIO HEAD AND NECK ? INDICATIONS:? left sided [id number] ? TECHNIQUE:? After the administration of intravenous contrast, 1 mm thick sections acquired from the aortic arch through the [place].? Post-contrast 4.5 mm thick sections then re-acquired from the foramen magnum to the vertex.? 3-dimensional edqxhbi-ppzrzmbuf-pmwmufbhvg (MIP) and/or volume rendering reformats were acquired of the central intracranial vasculature and neck separately. For radiation dose reduction, the following was used:? automated exposure control, adjustment of mA and/or kV according to patient size.? ? COMPARISON:? MR, ANGIO NECK WITH CONTRAST, 03/27/2017, 16:22.? MR, ANGIO HEAD WITHOUT CONTRAST, 03/27/2017, 16:11.? [facility], MR, BRAIN WITHOUT CONTRAST, 03/27/2017, 10:46.? [facility], CT, CT STROKE, 12/05/2021, 10:56. ? FINDINGS:? Image quality:? Excellent.? ? BRAIN:? CSF spaces:? Ventricles are normal in size and shape.? Basal cisterns are patent.? No extra-axial fluid collections.? ? Brain:? No midline shift.? No intracranial bleeds or masses.? Carey-white matter interface appears intact.? ? Skull and face:? Calvarium and facial bones appear intact, without suspicious lesions.? Orbits appear normal.? ? Sinuses:? Sinuses and mastoids are clear.? ? HEAD CT ANGIOGRAPHY:? Anterior circulation:? Intracranial internal carotid arteries are normal in size and flow.? The flow within the paired anterior cerebral arteries is normal and symmetric.? The flow within the middle cerebral arteries is normal and symmetric.? The anterior communicating artery is seen.? No aneurysms are seen.? ? Posterior circulation:? There is a left vertebral artery dominance.? Visualized portions of the vertebral arteries demonstrate normal caliber, and join to form a normal appearing basilar artery.? Flow within the posterior cerebral arteries is normal and symmetric.? No aneurysms are seen.? ? NECK CT ANGIOGRAPHY:? Carotid system:? The great vessels demonstrate a conventional anatomy as they arise from the aortic arch.? The origins of the common carotid arteries appear patent.? The common carotid arteries demonstrate normal caliber and courses.? The bifurcation regions are both widely patent.? The internal carotid arteries demonstrate normal calibers and courses.? ? Posterior circulation:? The origins of the vertebral arteries both appear widely patent.? The more superior extracranial portions of both vertebral arteries also demonstrate normal courses and calibers.? They join to form a normal appearing basilar artery.? ? Soft tissues:? Visualized neck soft tissues demonstrate no suspicious abnormalities.? ? Bones:? No suspicious bony lesions.? Visualized cervical spine appears normally aligned.? IMPRESSION:? ? 1. No acute intracranial process. ? 2. No areas of hemodynamically significant stenosis, vascular occlusion or aneurysmal dilation within the anterior or posterior circulation.? ? 3. No areas of hemodynamically significant stenosis, vascular occlusion or aneurysmal dilation within the neck vasculature. ? Any quantitative measurements of stenosis were performed using NASCET criteria.? ? ? Dictated by: Willow Monaco M.D. on 12/05/2021 at 11:35 ECG Data Interpretation: Normal sinus rhythm rate 96 AR interval 172 QRS [address] changes no T-wave inversions MDM Narrative Medical decision making narrative: Patient is not in the window for tPA last known well was last evening. Sounds as though she woke up with symptoms at around 7:30 a.m.. She is also noncompliant with medications. Dr. Braden updated patient's symptoms test results play accepts patient Discharge Plan Departure Patient Disposition: Admitted As Inpatient Admit Date/Time: 12/05/21 13:44 Admit Provider: Bonita Braden
[2021-12-05 11:14] LABS: INR 0.9 (0.9-1.3); Prothrombin Time 9.8 SECONDS (10.1-12.7)
[2021-12-05 11:16] LABS: PTT Partial Thromboplastin Tim 33 SECONDS (26.4-36.2)
[2021-12-05 11:22] LABS: Alanine Aminotransferase 21 IU/L (<35); Albumin 4.9 g/dL (3.5-5.0); Albumin Globulin Ratio 1.4 (1.0-2.8); Alkaline Phosphatase 82 U/L (38-126); Aspartate Aminotransferase 23 IU/L (14-36); BUN Creatinine Ratio 26.4 (6-22); Bilirubin Total 0.4 mg/dL (0.2-1.3); Blood Urea Nitrogen 14 mg/dL (7-17); Calcium 9.5 mg/dL (8.4-10.2); Carbon Dioxide 27 mmol/L (22-32); Chloride 99 mmol/L (98-107); Creatine Kinase 65 U/L (30-135); Estimated Glomerular Filt Rate > 60 mL/min (>60); Ethanol (ETOH) < 10 mg/dL; Globulin 3.4 g/dL (1.7-4.1); Glucose 289 mg/dL (80-110); HEMOLYSIS < 15 (0-50); Potassium 4.3 mmol/L (3.4-5.1); Sodium 136 mmol/L (137-145); Total Protein 8.3 g/dL (6.3-8.2)
[2021-12-05] MEDS: SODIUM CHLORIDE 0.9% 1,000 ML 150 ML IV (11:27)
[2021-12-05 11:33] LABS: Troponin I < 0.012 ng/mL (0.01-0.034)
--- NOTE | 2021-12-05 12:11 | DI.MRI.S_ITS ---
PROCEDURE: MR HEAD/BRAIN WO/W CON INDICATIONS: left sided weakness TECHNIQUE: Noncontrast axial T1 spin echo, axial T2 fast spin echo, sagittal and axial FLAIR, coronal T2 fast spin echo, axial gradient echo, axial diffusion and ADC through the brain. After the administration of contrast, axial and coronal and sagittal T1 spin echo with fat saturation through the brain. COMPARISON: [facility], MR, BRAIN WITHOUT CONTRAST, 03/27/2017, 10:46. [facility], MR, ANGIO NECK WITH CONTRAST, 03/27/2017, 16:22. [facility], MR, ANGIO HEAD WITHOUT CONTRAST, 03/27/2017, 16:11. [facility], CT, HEAD WITHOUT CONTRAST, 03/28/2017, 17:06. [facility], CT, CT ANGIO HEAD AND NECK, 12/05/2021, 11:00. [facility], CT, CT STROKE, 12/05/2021, 10:56. FINDINGS: Image quality: Excellent. CSF spaces: Basal cisterns are patent. No extra-axial fluid collections. Ventricles are normal in size and shape. Brain: Within the right thalamus on series 6, image 60, there is a mild focus of increased diffusion signal, with associated dark signal on the ADC map. There is mild developing T2 weighted signal seen at this site. A remote, completed infarction can be seen involving the left thalamus, which was identified in 2017. No midline shift. No intracranial bleeds or masses. No abnormal intracranial enhancement. There is cerebral volume loss for age. There is periventricular white matter chronic small vessel ischemic change. The brainstem appears normal. Normal intravascular flow voids are present. Skull and face: Calvarial marrow is normal in signal. Orbits appear normal. Sinuses: Sinuses and mastoids appear clear. IMPRESSION: These imaging findings are most compatible with a small subacute infarction involving the right thalamus. Remote left thalamus infarction. No masses or abnormal enhancement can be seen. Dictated by: Antwon Boland M.D. on 12/05/2021 at 15:27 Approved by: Antwon Boland M.D. on 12/05/2021 at 15:31
[2021-12-05 12:30] LABS: UR Morphine/Opiate cutoff 300 Negative (Negative); Ur Creatinine Normal (Normal); Ur Specific Gravity Normal (Normal); Urine Amphetamines Negative (Negative); Urine Barbiturates Negative (Negative); Urine Benzodiazepines Negative (Negative); Urine Cocaine Negative (Negative); Urine MDMA Negative (Negative); Urine Methadone Negative (Negative); Urine Methamphetamines Negative (Negative); Urine Oxycodone Negative (Negative); Urine Phencyclidine Negative (Negative); Urine Tetrahydrocannabinol Negative (Negative); Urine Tricyclic Antidepressant Negative (Negative); Urine pH Normal (Normal)
[2021-12-05 14:43] LABS: COVID19 -Nasal RAPID Negative (Negative)
--- NOTE | 2021-12-05 18:09 | DI.ECHO.S_ITS ---
[facility] +---------+ : : [address] : [place] : : : : [id number] : : : : Phone: [phone] Echocardiogram Report + + :Name: JULIO CESAR PICKENS Study Date: 12/06/2021 Height: 64 in : :[facility] ReadingLocation: Weight: 135 lb : : Gender: Female BSA: 1.7 m2 : :: 1960 Age: 61 yrs BP: 158/81 mmHg: :Reason For Study: CVA : :Ordering Physician: TERESA, : :KRISTIN Performed By: Shanthi Cardona : :Referring: KRISTIN MOORE : + + Interpretation Summary The ejection fraction is estimated to be 60-65%. Diastolic function could not be accurately assessed due to unobtainable data. The right ventricle grossly appears normal in size with probable normal systolic function. Injection of contrast documented no interatrial shunt. No significant valvular abnormalities. Unable to estimate PASP. Procedure: A two-dimensional transthoracic echocardiogram with color flow and Doppler was performed. The study quality was technically difficult. There is no prior echocardiogram noted for this patient. A saline contrast injection was performed to assess for cardiac shunting. The patient was in sinus rhythm with heart rates between 86-95 bpm during the exam. Left Ventricle: The left ventricle is normal in size and wall thickness. The ejection fraction is estimated to be 60-65%. Diastolic function could not be accurately assessed due to unobtainable data. Right Ventricle: The right ventricle is not well visualized. The right ventricle grossly appears normal in size with probable normal systolic function. Atria: The left atrial size is normal. Right atrial size is normal. There is no Doppler evidence for an interatrial shunt. Injection of contrast documented no interatrial shunt. Mitral Valve: The mitral valve is normal in structure and function. There is no mitral regurgitation. Aortic Valve: The aortic valve is trileaflet. The aortic valve opens well. There is no aortic valve stenosis. No aortic regurgitation is present. Tricuspid Valve: The tricuspid valve is normal in structure and function. There is trace tricuspid regurgitation. Pulmonic Valve: The pulmonic valve leaflets are thin and pliable; valve motion is normal. There is trace pulmonic regurgitation. Great Vessels: The aortic root is normal size. The dimensions of the ascending aorta are normal. The IVC is of normal diameter and collapses greater than 50% with a sniff. This suggests a low right atrial pressure of 3 mm Hg. Pericardium/ Pleura There is no pericardial effusion. There is no pleural effusion. MMode/2D Measurements & Calculations LVIDd: 3.6 cm LVOT diam: 2.0 cm LVIDs: 2.4 cm Ao root diam: 2.9 cm FS: 31.4 % asc Aorta Diam: 3.0 cm EPSS: 1.4 cm Ao Arch Diam (Prox Trans): 2.9 cm IVSd: 0.88 cm LVPWd: 0.84 cm LV ramirez. diameter/BSA (cm/m^2): 2.1 LV sys. diameter/BSA (cm/m^2): 1.5 LA A2 area: 17.7 cm2 RA long axis: 3.9 cm LA A4 area: 14.3 cm2 RA area: 12.3 cm2 LA length (vol): 4.3 cm RA vol: 33.2 ml LA vol: 50.2 ml RA : 20.1 ml/m2 LA vol index: 30.3 ml/m2 IVC diam: 1.0 cm TAPSE: 1.7 cm Doppler Measurements & Calculations Ao V2 max: 119.6 cm/sec LVOT Max Lazaro: 71.5 cm/sec Ao V2 mean: 79.9 cm/sec LV V1 max P.0 mmHg Ao max P.7 mmHg LV V1 VTI: 13.5 cm Ao mean P.9 mmHg LATRICE(I,D): 2.0 cm2 Ao V2 VTI: 22.2 cm LATRICE(V,D): 1.9 cm2 sev ratio: 0.61 LATRICE indexed to BSA (cm^2/m^2): 1.2 MV E max lazaro: 49.3 cm/sec PA V2 max: 109.1 cm/sec MV A max lazaro: 101.0 cm/sec PA V2 mean: 70.4 cm/sec MV E/A: 0.49 PA mean P.2 mmHg Med Peak E' Lazaro: 7.2 cm/sec PA Accel Time: 0.08 sec E/E' med: 6.9 Lat Peak E' Lazaro: 4.2 cm/sec E/E' lat: 11.7 E/e' average: 9.3 MV P1/2t: 42.7 msec MV P1/2t max lazaro: 50.9 cm/sec SV(LVOT): 43.7 ml MVA(2t): 5.2 cm2 Reading Physician:01:18 PM
--- NOTE | 2021-12-05 18:13 | P.HP_ITS ---
History of Present Illness History of Present Illness Date Patient Seen: 12/05/21 Chief complaint: Numbness on left side/ hx of stroke Narrative: 61-year-old female with diabetes mellitus type 2, insulin dependent, hypothyroidism, prior right-sided stroke without residual deficit, who presented to the emergency department with left-sided facial numbness, and clumsy left leg. She reports that she was fine when she went to bed last night. When she woke up she went to get out of bed and her left leg was clumsy and numb. She states her leg was dragging a bit. She also felt as though her face had a heavy sensation. This was at approximately 7:30 a.m.. She states she was trying to figure out what was going on and her noted she was unusually quiet as he normally talks a lot mornings. When she explained her symptoms, he stated they needed to go to the emergency department for further evaluation. Emergency department, patient was noted to be hypertensive. Her blood pressures were as high as 201/98. CT scan showed no acute intracranial abnormality. There is chronic left thalamic infarct which was not well visualized. CTA of the head neck revealed no acute intracranial process. No areas of hemodynamically significant stenosis, vascular occlusion, or aneurysmal dilatation within the anterior posterior circulation. No areas of hemodynamically significant kamari nosis, vascular occlusion or aneurysmal dilatation within the neck vasculature. Brain MRI revealed a small subacute infarct of the right thalamus. Admission was recommended. She and had a previous stroke in the past and was prescribed aspirin and statin therapy at that time. She reports she had DC the statins secondary to myalgias. She was on aspirin for quite a while but developed increasing abdominal pain every time she took a dose. She subsequently decreased the dose to 81 mg daily but again after a couple years once again the pain happened every time she took the aspirin so she subsequently discontinued it. 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 She did recently initiate insulin therapy and is currently on 26 units daily. Her doctor recommended she take treated 30 units but she has been nervous to do so. Current reports that her left leg continues to feel a bit clumsy though no longer feels weak. She also continues to feel as though the left side of her face is a bit numb she also reports half of her tongue and she feels numb as well. She is not having any dysphagia. Prior to this morning, she reports she was in her usual state of health. She had been feeling well. She notes she had decreased her exercise during the pandemic and was not taking as good care for diabetes she knows she should. Patient History Medical History History of diabetes mellitus History of hypothyroidism History of rosacea History of seasonal allergies History of stroke Trigger finger of right hand Trigger finger, left Surgical History History of ectopic History of third molar tooth extraction Status post appendectomy Status post ovarian cystectomy Status post tubal ligation [place] teeth removed Family & Social History Family History Father Heart disease Mother Heart attack Brother No problems noted. Brother No problems noted. Social History: household members spouse Prior Living Arrangements House lives independently Yes caregiver/support person No Safety & Behavioral: Feels Safe in Current Yes Environment Been Physically Hurt or No Threatened By a Person Tobacco & Substance use: Smoking Status Never smoker alcohol intake never Substance Use Type does not use Meds Home Medications and Allergies Home Medications Medication Instructions Recorded Confirmed Type [TEST STRIPS] #1 pkg 12/28/17 07/15/18 Rx blood sugar diagnostic (Blood #100 ea 01/22/18 07/15/18 Rx Glucose Test strips) levothyroxine 88 mcg tablet 88 mcg PO DAILY #90 tabs 01/22/18 12/05/21 Rx loratadine 10 mg tablet 10 mg PO QDAY #90 tabs 01/22/18 12/05/21 Rx metformin 1,000 mg tablet 1,000 mg PO BIDCC #180 tabs 01/22/18 12/05/21 Rx (Glucophage) doxycycline hyclate 100 mg tablet 1 tab PO DAILY PRN Rash 12/05/21 12/05/21 History insulin glargine 100 unit/mL (3 26 unit SUBCUT DAILY 12/05/21 12/05/21 History mL) subcutaneous pen (Lantus Solostar U-100 Insulin) lisinopril 2.5 mg tablet 2.5 mg PO QDAY 12/05/21 12/05/21 History Allergies Allergy/AdvReac Type Severity Reaction Status Date / Time latex [LATEX] Allergy Mild ITCHY RASH Verified 12/05/21 14:44 oxycodone [OXYCODONE] AdvReac Unknown SEVERE Verified 12/05/21 14:44 STOMACH PAIN MEDIPORE TAPE AdvReac Unknown RASH/BLISTE Uncoded 10/22/17 10:50 RS Review of Systems Review of Systems Narrative: All other systems were reviewed negative Exam Vital Signs (past 8 hours): - 12/05/21 10:45 12/05/21 11:16 12/05/21 11:19 Temperature Pulse Rate 103 H 92 H 93 H Respiratory Rate 16 12 21 Blood Pressure 245/118 H Pulse Oximetry 97 97 96 Oxygen Delivery Method Room Air Oxygen Flow Rate 97.8 12/05/21 11:19 12/05/21 11:30 12/05/21 11:30 Temperature Pulse Rate 88 Respiratory Rate 18 Blood Pressure 208/100 H 182/87 H Pulse Oximetry 97 Oxygen Delivery Method Oxygen Flow Rate 12/05/21 12:00 12/05/21 12:00 12/05/21 12:16 Temperature Pulse Rate 89 Respiratory Rate 16 Blood Pressure 178/87 H 233/103 H Pulse Oximetry 96 Oxygen Delivery Method Oxygen Flow Rate 12/05/21 12:16 12/05/21 12:24 12/05/21 12:24 Temperature Pulse Rate 93 H 86 Respiratory Rate 21 12 Blood Pressure 192/84 H Pulse Oximetry 96 96 Oxygen Delivery Method Oxygen Flow Rate 12/05/21 12:30 12/05/21 12:30 12/05/21 12:48 Temperature Pulse Rate 88 89 Respiratory Rate 9 L 15 Blood Pressure 189/93 H Pulse Oximetry 96 95 Oxygen Delivery Method Oxygen Flow Rate 12/05/21 12:48 12/05/21 13:00 12/05/21 13:00 Temperature Pulse Rate 87 Respiratory Rate 17 Blood Pressure 190/96 H 164/83 H Pulse Oximetry 96 Oxygen Delivery Method Oxygen Flow Rate 12/05/21 13:30 12/05/21 13:30 12/05/21 14:06 Temperature Pulse Rate 87 89 Respiratory Rate 16 17 Blood Pressure 201/98 H Pulse Oximetry 96 93 Oxygen Delivery Method Oxygen Flow Rate 12/05/21 14:30 12/05/21 17:41 Temperature 97.5 F L Pulse Rate 81 96 H Respiratory Rate 18 16 Blood Pressure 158/81 H Pulse Oximetry 95 97 Oxygen Delivery Method Oxygen Flow Rate 0 Oxygen Delivery Method Room Air Oxygen Flow Rate 0 Narrative Exam Narrative: GEN: Very pleasant middle-aged female, Alert and oriented x3, no acute distress HEENT: Normocephalic, face symmetric, pupils equal round reactive to light, extraocular movements intact, sclerae anicteric, conjunctiva clear, nares patent, oropharynx reveals an intact soft and hard palate with moist mucous membranes, dentition is fair NECK: Supple, no lymphadenopathy, thyroid without enlargement or nodularity, carotids no bruits CHEST: Respiratory excursions symmetric, clear to auscultation bilaterally CV: Regular rate and rhythm, no murmurs, rubs, gallops, PMI nondisplaced ABD: Soft, nontender, nondistended, bowel sounds present in all 4 quadrants, no organomegaly or masses appreciated EXTR: Warm, well perfused, no clubbing/cyanosis/edema SKIN: Warm and dry, without rash NEURO: Alert and oriented x3, cranial nerves are intact and symmetric bilaterally she does have decreased sensation to palpation of the left facial area compared to the right, good strength in her left upper extremity, involved, NIH is 3 PSYCH: Mood and affect is within normal limits, judgment and insight are appropriate Objective Labs Result Diagrams: 12/05/21 11:00 12/05/21 11:00 Labs: Laboratory Results - last 24 hr 12/05/21 12/05/21 12/05/21 11:00 11:00 11:00 WBC 7.9 RBC 4.75 Hgb 15.1 Hct 43.5 MCV 91.5 MCH 31.8 MCHC 34.7 RDW 13.0 Plt Count 290 Neut % (Auto) 61.9 Lymph % (Auto) 27.9 Casey % (Auto) 6.5 Eos % (Auto) 2.6 Baso % (Auto) 1.1 Neut # (Auto) 4900 Lymph # (Auto) 2200 Casey # (Auto) 500 Eos # (Auto) 200 Baso # (Auto) 100 PT 9.8 L INR 0.9 APTT 33 Sodium 136 L Potassium 4.3 Chloride 99 Carbon Dioxide 27 BUN 14 Creatinine 0.53 Estimated GFR > 60 BUN/Creatinine Ratio 26.4 H Glucose 289 H Calcium 9.5 Total Bilirubin 0.4 AST 23 ALT 21 Alkaline Phosphatase 82 Total Creatine Kinase 65 CK-MB (CK-2) TNP CK-MB (CK-2) Rel Index TNP Troponin I < 0.012 Total Protein 8.3 H Albumin 4.9 Globulin 3.4 Albumin/Globulin Ratio 1.4 U Opiates 300ng/mL cut Ur Oxycodone Screen Urine Methadone Screen Ur Barbiturates Screen U Tricyclic Antidepress Ur Phencyclidine Scrn Ur Amphetamines Screen U Methamphetamines Scrn Ur MDMA Scrn (Ecstasy) U Benzodiazepines Scrn Urine Cocaine Screen U Marijuana (THC) Screen Ethyl Alcohol < 10 SARS-CoV-2 (PCR) 12/05/21 12/05/21 12:24 13:56 WBC RBC Hgb Hct MCV MCH MCHC RDW Plt Count Neut % (Auto) Lymph % (Auto) Casey % (Auto) Eos % (Auto) Baso % (Auto) Neut # (Auto) Lymph # (Auto) Casey # (Auto) Eos # (Auto) Baso # (Auto) PT INR APTT Sodium Potassium Chloride Carbon Dioxide BUN Creatinine Estimated GFR BUN/Creatinine Ratio Glucose Calcium Total Bilirubin AST ALT Alkaline Phosphatase Total Creatine Kinase CK-MB (CK-2) CK-MB (CK-2) Rel Index Troponin I Total Protein Albumin Globulin Albumin/Globulin Ratio U Opiates 300ng/mL cut Negative Ur Oxycodone Screen Negative Urine Methadone Screen Negative Ur Barbiturates Screen Negative U Tricyclic Antidepress Negative Ur Phencyclidine Scrn Negative Ur Amphetamines Screen Negative U Methamphetamines Scrn Negative Ur MDMA Scrn (Ecstasy) Negative U Benzodiazepines Scrn Negative Urine Cocaine Screen Negative U Marijuana (THC) Screen Negative Ethyl Alcohol SARS-CoV-2 (PCR) Negative Assessment & Plan Assessment & Plan narrative: 1. Subacute right thalamic ischemic stroke Patient will be admitted under observation status. Should be placed on telemetry to monitor for arrhythmia. EKG revealed a normal sinus rhythm. We will obtain an echocardiogram in the morning. She is reluctant to resume aspirin. However, given the ischemic nature of her stroke, she will require antiplatelet therapy. Also discussed the need to resume statin therapy. Will place on high-intensity statin therapy this evening. Will allow for permissive hypertension. Will have PT and OT evaluate the morning. 2. Diabetes mellitus type 2, insulin requiring Patient reports blood sugars typically up around 280 in the afternoons with morning sugars that appeared to be fairly well controlled. She will be placed on fingersticks and sliding scale. Will obtain hemoglobin A1c. 3. Hypertension Patient is on lisinopril 2.5 mg daily at baseline. As noted, will allow for permissive hypertension. Will restart lisinopril likely tomorrow or the following day. 4. Hypothyroidism Continue levothyroxine 5. Hyperlipidemia Last lipid panel done in August of 2021 revealed a total cholesterol 263, LDL 149, HDL 86. Unfortunately her LDL is above goal of 70. We did discuss options such as Red rice yeast and fish oil as possible alternatives however they may not be as effective at controlling her lipids as statin therapy. However she is fairly adamant she will not take another statin. Code status Full Prophylaxis Low Yanely score Disposition Admit under observation status. Possible discharge home tomorrow. Time Spent With Patient Critical Care time: I spent a total of [] minutes of critical care time on this patient's care today; this time is exclusive of procedural time. Quality VTE Deep Vein Thrombosis/Pulmonary Embolism Present on Admission: No
[2021-12-05 20:32] LABS: Hemoglobin A1C% w Est Avg Glu 9.7 % (4.0-6.0)
[2021-12-05] MEDS: ATORVASTATIN 20 MG TABLET 80 MG PO (21:30)
[2021-12-06 03:20] VITALS: BP 174/72; PULSE 85; RESP 18; TEMP 36.6; O2SAT 97
[2021-12-06] MEDS: LEVOTHYROXINE 88 MCG TABLET PO (06:00)
[2021-12-06 06:35] LABS: Add Manual Diff / Slide Review NO; Basophils Absolute Auto 100 /uL (0-100); Basophils Percent Auto 0.9 % (0-2); Eosinophils Absolute Auto 200 /uL (0-450); Eosinophils Percent Auto 3.4 % (2-4); Hematocrit 44.6 % (36-46); Hemoglobin 15.3 g/dL (12.0-16.0); Lymphocytes Absolute Auto 2400 /uL (1100-4500); Lymphocytes Percent Auto 36.5 % (25-40); Mean Corpuscular HGB Conc 34.3 % (30-36); Mean Corpuscular Hemoglobin 31.7 PG (26-34); Mean Corpuscular Volume 92.4 fL (80-100); Monocytes Absolute Auto 500 /uL (0-900); Monocytes Percent Auto 7.7 % (3-14); Neutrophils Absolute Auto 3300 /uL (1500-7000); Neutrophils Percent Auto 51.5 % (50-75); Platelet Count 283 X10^3/uL (150-400); Red Blood Cell Count 4.82 X10^6/uL (4.0-5.2); Red Cell Distribution Width 12.7 % (11.6-14.8); White Blood Cell Count 6.5 X10^3/uL (4.5-11.0)
[2021-12-06 06:45] LABS: BUN Creatinine Ratio 29.6 (6-22); Blood Urea Nitrogen 16 mg/dL (7-17); Calcium 9.4 mg/dL (8.4-10.2); Carbon Dioxide 28 mmol/L (22-32); Chloride 104 mmol/L (98-107); Estimated Glomerular Filt Rate > 60 mL/min (>60); Glucose 160 mg/dL (80-110); HEMOLYSIS < 15 (0-50); Sodium 140 mmol/L (137-145)
[2021-12-06 06:57] LABS: Cholesterol 232 mg/dL (140-199); HDL Cholesterol 79 mg/dL (40-60); LDL Cholesterol Calculated 128 mg/dL (<100); Triglycerides 123 mg/dL (35-150)
[2021-12-06 07:14] LABS: Thyroid Stimulating Hormone 2.67 uIU/mL (0.47-4.68)
--- NOTE | 2021-12-06 07:58 | PC.NURSE ---
Addendum entered by Leonie Cox R.N. 12/06/21 11:31: Patient states that she can feel the numbness/tingling on the l.side of her jaw a bit more, and vision is a bit blurry to left eye. She states it is not like when she came in the hospital yesterday, its a bit better. Original Note: Assess- Patient is alert and oriented x4. She states that yesterday she had some numbness to the corner of her l.mouth, and it is better today. She states that her left leg is better and not feeling as wobbly. Her gait is steady with a walker and smile is symmetrical. States that her vision is at baseline and she is a little blurry in the morning. Sitting up in the chair and eating her breakfast now.
[2021-12-06] MEDS: ASPIRIN 81 MG CHEW TAB PO (08:44)
[2021-12-06] MEDS: LORATADINE 10 MG TABLET PO (08:45)
[2021-12-06] MEDS: INSULIN LISPRO 100 UNIT/ML 3ML VIAL SUBCUT ×2 (08:45→12:27)
[2021-12-06] MEDS: INSULIN GLARGINE 100 UNIT/ML 3ML PEN 26 UNIT SUBCUT (08:46)
[2021-12-06 09:00] VITALS: BP 169/72; PULSE 84; RESP 20; TEMP 36.2; O2SAT 97
--- NOTE | 2021-12-06 09:16 | OT.IP.EVAL ---
Past Medical History (Last Reviewed 12/05/21 @ 14:01 by Lanie Hook DO) History of diabetes mellitus History of hypothyroidism History of rosacea History of seasonal allergies History of stroke Trigger finger of right hand Trigger finger, left Surgical History (Last Reviewed 12/05/21 @ 14:01 by Lanie Hook DO) History of ectopic History of third molar tooth extraction Status post appendectomy Status post ovarian cystectomy Status post tubal ligation [place] teeth removed Occupational Therapy Inpatient Evaluation/Re-Eval M1 PT/OT-IP Prior Functional Status Start: 12/06/21 13:44 Freq: Status: Discharge Protocol: Document 12/06/21 13:45 BC (Rec: 12/06/21 13:57 BC [id number]) Medical Review Prior Functional Status Medical History Reviewed Yes Communication Speech deficits from a prior CVA Mobility and Gait SPC for ambulation Activities of Daily Living and IADL's Independent Prior Functional Level (Other details) 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 3 steps to enter, no rail but support beam in reach Home Environment High Toilet,Tub/Shower Home Equipment Straight Cane,Shower Seat with Backrest Employment Status Retired M1 PT/OT-IP Prior Functional Status Start: 12/06/21 16:07 Freq: NEEDED Status: Active Protocol: Document 12/06/21 09:16 [facility] (Rec: 12/06/21 16:24 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 3 steps to enter, no rail but support beam in reach Home Environment High Toilet,Tub/Shower Home Equipment Straight Cane,Shower Seat with Backrest,Hand Held Shower Employment Status Retired M2 OT-IP Current Condition Start: 12/06/21 16:07 Freq: Status: Active Protocol: Document 12/06/21 09:16 [facility] (Rec: 12/06/21 16:24 [facility] [id number]) Occupational Therapy Current Condition Current Condition Evaluation Date 07/19/22 Treatment Diagnosis CVA, remote right thalamus infarction Diagnosis Onset Date 12/05/21 M3 OT- IP Subjective and Pain Start: 12/06/21 16:07 Freq: Status: Active Protocol: Document 12/06/21 09:16 [facility] (Rec: 12/06/21 16:24 [facility] [id number]) OT- Subjective Occupational Therapy Visit Type Type Initial Evaluation Visit Start Time 09:16 Visit Stop Time 10:06 Total Visit Minutes 50 Occupational Therapy Visit Comments Patient Comments Pt agreed to do OT eval. Patient/Caregiver Goals TO go home. OT Pain Assessment Pain When Pain Assessed At Rest Pain Present Pain Present Denied Pain M4 OT- IP ADL's Start: 12/06/21 16:07 Freq: Status: Active Protocol: Document 12/06/21 09:16 [facility] (Rec: 12/06/21 16:24 [facility] [id number]) OT [id number] Comments OT Self-Feeding Comments not at meal time OT ADL-Grooming General Evaluation Grooming Ability Standby Assistance Areas Needing Assistance Retrieving/Set-up of Grooming Items Comments OT Grooming Comments able to do while standing at the sink. OT ADL-Oral Care General Eval Oral Care Ability Independent OT ADL-Dressing General Eval Lower Body Dressing Ability Standby Assistance Comments OT Dressing Comments Pt able to zohreh/doff socks while seated. OT ADL-Toileting Comments OT Toileting Comments Not performed. OT ADL-Bathing Comments OT Bathing Comments Pt states to shower at home. Pt will benefit from use of shower chair at home. M5 OT- IP IADL's Start: 12/06/21 16:07 Freq: Status: Active Protocol: Document 12/06/21 09:16 [facility] (Rec: 12/06/21 16:24 [facility] [id number]) OT-Instrumental Activities of Daily Living Deficits IADL Deficits Identified Deficits Home Safety Awareness Awareness of Need for Assistance at Home Good Awareness Ability to Problem Solve Emergency Able to Problem Solve Situations Home Safety Comments Pt would benefit from assist with IADl needs at this time and assist as needed for ADL's . Medication Management Medication Management Comments Pt would benefit from supervision from her for needs. M6 OT- IP Functional Cognition Start: 12/06/21 16:07 Freq: Status: Active Protocol: Document 12/06/21 09:16 [facility] (Rec: 12/06/21 16:24 [facility] [id number]) Cognitive Factors Limiting Selfcare Function Cognitive Ability Level of Alertness Alert Patient Orientation Name,Age,Birthday,Month,Date, Year,Day of Week,Place, Situation Attention Span Ability Capable of Focused Attention, Capable of Sustained Attention Ability to Follow Commands Able to Follow Multi-Step Commands Problem Solving Ability No deficits Noted Cognitive Comments Cognitive Assessment Comments Pt able to follow commands for ADl and mobility needs. Pt scored 93 seconds on Sinclair making Part B which implies mild deficits for visual attention, speed of processing , executive functioning, mental flexibility, and task switching. Pt score is at 20th percentile for her age. Pt agrees that she will not drive at this time. OT- Vision and Hearing OT- Hearing Assessment OT- Hearing Assessment WFL OT- Vision Assessment Visual Acuity Glasses For Reading Visual Attentiveness WFL Occular Pursuits WFL Visual Convergence WFL Visual Ring WFL Diplopia Absent M7 OT- IP Mobility and Balance Start: 12/06/21 16:07 Freq: Status: Active Protocol: Document 12/06/21 09:16 [facility] (Rec: 12/06/21 16:24 [facility] [id number]) OT- Bed Mobility Assessment Supine to Sit Supine to Sit Assist Independent Sit to Supine Sit to Supine Assist Independent OT-Transfer Assessment Sit to and From Stand Sit to and from Stand Standby Assistance,Contact Guard Assistance Transfers Transfer Ability Standby Assistance,Contact Guard Assistance,Minimal Assistance Technique Transfer Destination Bed,Chair Devices Transfer Assistive Devices None,Gait Belt,Front Wheeled Walker Comments Mobility Comments Pt unsteady on her feet and needing cga/HANSA for her balance. Pt SBA with FWW use. OT- Balance Assessment Sitting Balance and Reactions Static Sitting Balance Ability Normal Dynamic Sitting Balance Ability Good Standing Balance and Reactions Static Standing Balance Ability Good Dynamic Standing Balance Ability Fair M8 OT- IP Objective Assessments Start: 12/06/21 16:07 Freq: Status: Active Protocol: Document 12/06/21 09:16 [facility] (Rec: 12/06/21 16:24 [facility] [id number]) OT Gross Range of Motion Upper Extremity Range of Motion Assessment Within Functional Limits OT Strength Comments Strength Comments LUE 3+/5 to 4-/5, RUE 4-/5 to 4/5 OT- Coordination Assessment Upper Extremity Finger to Nose Test Left UE Impaired Comments Coordination Comments R hand 27 seconds and Lhand 31 seconds for 9 hole pegs test OT-Muscle Tone Assessment Muscle Tone WNL Yes OT Sensation Assessment Comments Summary Comments Decreased proprioception Right elbow to distal and left wrist. M9 OT- IP Assessment and Plan Start: 12/06/21 16:07 Freq: Status: Active Protocol: Document 12/06/21 09:16 [facility] (Rec: 12/06/21 16:24 [facility] [id number]) OT Summary Assessment and Plan Potential Rehabilitation Potential Good Analytic Complexity at Evaluation Moderate Summary OT Impairments Strength,Balance,Sensation, Functional Cognition, Functional Mobility,Grooming, Dressing,Toileting,Bathing, Toilet Transfers,Shower Transfers Progress Towards Goals Progressing Toward Goals Assessment Summary Pt MOD complexity and main barriers are decreased dynamic balance, coordination, and sensation of numbness on her left side of her face. Pt lives with her who is able to assist her at home. Pt not wanting to have any outpt therapy for OT as states to work on her coordination of her own. Pt to go home when medically stable. Goals Grooming Goal Independent Dressing Goal Independent Toileting Goal Independent Bathing Goal Independent Toilet Transfer Goal Independent Shower Transfer Goal Independent Days to Meet Goals 5 Frequency of Treatment Frequency Of Treatment Once a Day Treatment Plan OT Treatment Plan ADL Training,Functional Mobility,Patient/Family Education,Discharge Planning Other Treatment Recommendations and Next shower if still here Treatment Focus Discharge Recommendations OT Discharge Recommendations Home with Assistance Transportation Needs at Discharge Private Vehicle
--- NOTE | 2021-12-06 12:34 | CM.DANOTE ---
DCP: Case received, EMR reviewed and met with patient. Introduced self and role. Was able to obtain information regarding patient's baseline activity level at home prior to hospitalization. DCP assessment completed with information currently available. Patient is a 61 year old female who admitted yesterday afternoon to the care of the hospitalist team. PCP: Dr. Durand at [facility] in [facility]. Payer: confirmed: Medicare/[employer]. Patient came to the hospital via private vehicle secondary to having left-sided weakness, and left leg weakness. Patient had went to bed feeling normal, but woke up feeling that her left side was weak. Patient had also stopped taking some of her meds, according to notes, due to statin making her legs cramp. Patient had MRI, holds current diagnosis of subacute right thalamic ischemic stroke. Patient also has history of diabetes type two insulin dependent, and HTN. Patient will be working with the therapy team. Met with patient in her room. She was sitting up in her chair, alert and oriented. She resides with Kilo, her spouse, in [place]. She gets her primary care in [facility], she stated, she really likes this provider, followed her there, she used to be at [facility]. At her baseline, she uses a cane. She stated, she had a stroke about 5 years ago, already has a toilet riser in the house. She also uses a cane. 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 She is hopeful to go home. P: DCP to continue to follow for any needs. Will see how she does with P.T. Shala Ugalde RN/Market Development Analyst Discharge Planning/Care Management CM Discharge Assessment Start: 12/06/21 12:29 Freq: Status: Active Protocol: Document 12/06/21 12:29 (Rec: 12/06/21 12:34 [id number]) Discharge Planning Assessment Assigned [employer] Shala Ugalde RN/Market Development Analyst Advance Directives? No History Provided By Patient,Medical Record Prior Living Arrangements House Household Members spouse Type of transporation used prior to Relies on Others admit Independent with ADL's Yes Is patient alert and oriented? Yes Needs Assistance With Home Chores / Shopping Caregiver for Another No DME Already Rented / Owned Cane Barriers to Discharge No Discharge Plan Home Transportation Arrangement Spouse Referrals Initiated Other Additional Comment Will see how patient does with P.T. Whiteboard Updated in Patient Room with Yes name and ext. # of [employer] Review Status In Process Next Review Type Continued Stay Review
[2021-12-06 13:00] VITALS: BP 156/79; PULSE 85; RESP 19; TEMP 36.3; O2SAT 96
[2021-12-06] MEDS: CLOPIDOGREL 75 MG TABLET PO (13:48)
--- NOTE | 2021-12-06 13:57 | PT.IIE ---
Surgical History (Last Reviewed 12/05/21 @ 14:01 by Lanie Hook DO) History of ectopic History of third molar tooth extraction Status post appendectomy Status post ovarian cystectomy Status post tubal ligation [place] teeth removed Medical History (Last Reviewed 12/05/21 @ 14:01 by Lanie Hook DO) History of diabetes mellitus History of hypothyroidism History of rosacea History of seasonal allergies History of stroke Trigger finger of right hand Trigger finger, left Physical Therapy Inpatient Evaluation/Re-Eval M1 PT/OT-IP Prior Functional Status Start: 12/06/21 13:44 Freq: Status: Active Protocol: Document 12/06/21 13:45 BC (Rec: 12/06/21 13:57 [id number]) Medical Review Prior Functional Status Medical History Reviewed Yes Communication Speech deficits from a prior CVA Mobility and Gait SPC for ambulation Activities of Daily Living and IADL's Independent Prior Functional Level (Other details) 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 3 steps to enter, no rail but support beam in reach Home Environment High Toilet,Tub/Shower Home Equipment Straight Cane,Shower Seat with Backrest Employment Status Retired M2 PT-IP Current Condition Start: 12/06/21 13:44 Freq: Status: Active Protocol: Document 12/06/21 13:45 BC (Rec: 12/06/21 13:57 [id number]) Physical Therapy Current Condition Current Condition Evaluation Date 12/06/21 Treatment Diagnosis abnormality of gait Onset Date 12/05/21 M3 PT-IP Subjective Start: 12/06/21 13:44 Freq: Status: Active Protocol: Document 12/06/21 13:45 BC (Rec: 12/06/21 13:57 [id number]) Subjective Physical Therapy Visit Type Type Initial Evaluation Visit Start Time 11:40 Visit Stop Time 12:05 Total Visit Minutes 25 Physical Therapy Visit Comments Patient Comments Pt states other than numbness on her L side of cheek, she states feeling much better and symptoms resolving. Patient Goals To go home Therapy Pain Assessment Pain When Pain Assessed During Mobility Pain Present Pain Present Denied Pain M4 PT-IP Mobility and Gait Start: 12/06/21 13:44 Freq: Status: Active Protocol: Document 12/06/21 13:45 BC (Rec: 12/06/21 13:57 [id number]) PT-Transfer Assessment Sit to and From Stand Sit to and from Stand Independent Equipment Transfer Assistive Device Gait Belt,Straight Cane Transfers Transfer Destination Chair Transfer Technique Stand Pivot Transfer Ability Level of Assist Independent Comments Mobility Comments SPC for all transfers. Able to maintain standing balance with no a.d. while manipulating personal bag, items from waist height. Gait Assessment Gait Gait Assistance Required: Independent,Standby Assistance Distance (Feet) 240 Assistive Devices Assistive Device Gait Belt,Straight Cane Gait Deviations General Gait Pattern Antalgic Factors Limiting Gait Function Factors Limiting Gait Function Decreased Sensation,Decreased Strength Comments Gait Comments Slight antalgic gait pattern without SPC and improves in coordination with SPC. Stair Climbing Assessment Evaluation Level of Assist On Stairs Standby Assistance Devices Stair Climbing Assistive Devices Straight Cane,Left Railing Technique/Endurance Stair Climbing Direction Ascend and Descend Stair Climbing Technique Step Over Step Number of Steps Climbed 3 Query Text: PT-Balance Assessment Sitting Balance and Reactions Static Sitting Balance Ability Normal Dynamic Sitting Balance Ability Normal Standing Balance and Reactions Static Standing Balance Ability Good Functional Assessments Functional Tests Tinetti Balance and Gait Assessment Tinetti 24/28 M5 PT-IP Objective Assessments Start: 12/06/21 13:44 Freq: Status: Active Protocol: Document 12/06/21 13:45 BC (Rec: 12/06/21 13:57 [id number]) Orientation Orientation/Cognition Level of Alertness Alert Orientation Name,Age,Birthday,Month,Date, Year,Day of Week,Place, Situation Gross Range of Motion Upper Extremity ROM Assessment Within Functional Limits Lower Extremity ROM Assessment Within Functional Limits Strength Upper Extremity Strength Assessment Bilaterally Impaired Lower Extremity Strength Assessment Right Impaired Comments Strength Comments Weaker RLE vs LLE from prior CVA that affected R side. RLE MMT grossly 4/5, LLE 4+ to 5/5 Refer to OT for UE. Coordination Assessment Gross Coordination Gross Coordination Impaired Assessment Finger to Nose Test Minimal Impairment Pronation/Supination Test Minimal Impairment Foot Tapping Test Minimal Impairment Sensation Assessment Sensation Light Touch Intact Comments Sensation Comments BLE sensation intact to light touch Muscle Tone Muscle Tone WNL Yes Comments Muscle Tone Comments Slightly ataxic RUE/RLE and acutely LUE movements. LLE appears grossly WNLs M6 PT-IP Treatment Start: 12/06/21 13:44 Freq: Status: Active Protocol: Document 12/06/21 13:45 BC (Rec: 12/06/21 13:57 BC [id number]) Physical Therapy Treatment Education Education Provided Precautions,Safety Brace Education Patient M7 PT-IP Assessment and Plan Start: 12/06/21 13:44 Freq: Status: Active Protocol: Document 12/06/21 13:45 BC (Rec: 12/06/21 13:57 BC [id number]) PT Summary Assessment and Plan Potential Rehabilitation Potential Excellent Status of Condition at Evaluation Stable Summary Impairments Strength,Balance,Coordination Progress Towards Goals Progressing Toward Goals Assessment Summary Pt admitted due to acute CVA of R thalamus. Prior hx of L CVA with R hemiparesis for which Pt states was a far worse stroke. States she retired after her first stroke and did not fully recovery with RUE/RLE strength or speech. States this current stroke affected her L side but is only noticing ongoing numbness in L mouth/face. She is demonstrating some LUE weakness and impaired coordination. LLE looks grossly intact. She is transferring and ambulating with SPC per her PLOF. She was able to ambulate some in hospital room without a.d. while performing some self care tasks. Tinetti balance is a lower fall risk . Recommend d/c home with OPPT referral and use of SPC at this time for fall risk reduction. Pt agreeable. IPPT to address strength, balance training and gait training during hospitalization. D/C when medically stable. Goals Bed Mobility Goal Independent Transfer Goal Independent Gait Goal Independent Gait Distance 500 Other Goals Ascend/descend 3 steps with SPC and no railing with SBA. Days to Meet Goals 3 Frequency of Treatment Frequency Of Treatment Once a Day Treatment Plan Physical Therapy Treatment Plan Bed Mobility Training,Transfer Training,Gait Training, Therapeutic Exercise,Balance Retraining,Discharge Planning, Neuromuscular Re-ed, Coordination Retraining Recommendations To Nursing Amount of Assist Needed Standby Assistance,1 Person Assist Discharge Recommendations PT Discharge Recommendations Home with Assistance, Outpatient PT Transportation Needs at Discharge Private Vehicle
--- NOTE | 2021-12-06 16:41 | ST.IPIE ---
Visit Care Team Role Provider Type Isabelle Durand MD Family Provider Non-Staff Primary Care Provider Specialty: Medical Address: [address] [place] [address], [id number] Email: Lanie Hook DO Emergency Provider Physician Referring Provider Specialty: Emergency Medicine Address: [address] [place] [address], [address] Email: [email or web address] Bonita Braden MD Admit Provider Physician Attending Provider Specialty: Internal Medicine Address: [address] [place] [address], [address] Phone: Fax: Email: [email or web address] Past Medical History (Last Reviewed 12/05/21 @ 14:01 by Lanie Hook DO) History of diabetes mellitus (Medical) History of hypothyroidism (Medical) History of rosacea (Medical) History of seasonal allergies (Medical) History of stroke (Medical) Trigger finger of right hand (Medical) Trigger finger, left (Medical) ST IP Initial Evaluation 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 Braden Setting Assessment Location Acute Care Visit Type Note Type Initial evaluation Patient Information Identification Type Name,Wristband Patient History PER H&P: 61-year-old female with diabetes mellitus type 2, insulin dependent, hypothyroidism, prior right- sided stroke without residual deficit, who presented to the emergency department with left -sided facial numbness, and clumsy left leg. She reports that she was fine when she went to bed last night. When she woke up she went to get out of bed and her left leg was clumsy and numb. She states her leg was dragging a bit. She also felt as though her face had a heavy sensation . This was at approximately 7 :30 a.m. She states she was trying to figure out what was going on and her noted she was unusually quiet as he normally talks a lot mornings . When she explained her symptoms, he stated they needed to go to the emergency department for further evaluation. She and had a previous stroke in the past and was prescribed aspirin and statin therapy at that time. Current brain MRI revealed a small subacute infarct of the right thalamus. Currently, pt reports that her left leg continues to feel a bit clumsy though no longer feels weak. She also continues to feel as though the left side of her face is a bit numb she also reports half of her tongue and she feels numb as well. She is not having any dysphagia. Assessment Oral Motor Examination Completed Yes Results Very mild asymmetry to left side of mouth. OME of other structures was observed to be WFL. No obvious s/sx aphasia, dysarthria, apraxia observed. Pt denied speech, language or swallowing difficulty. Her primary complaint was reduced sensation of the left corner of her mouth and inside her left cheek near her mouth, Informal Assessment Receptive Language Normal Yes Expressive Language Normal Yes Pragmatic Language Normal Yes Speech Normal Yes Cognition Normal Yes Findings/Results Language Function Within functional limits Cognitive Function Within functional limits Findings Pt presented with speech and language skills WFL. Pt denied speech, language or swallowing difficulty. Her primary complaint was reduced sensation of the left corner of her mouth and inside her left cheek near her mouth. Plan of Care Speech-Language Treatment No Patient/Caregiver Education Described results of evaluation,Patient expressed understanding of evaluation, Patient expressed agreement with goals and treatment plans Discharge Recommendations Home
--- NOTE | 2021-12-06 18:23 | P.DS_ITS ---
History of Present Illness History of Present Illness Chief complaint: Numbness on left side/ hx of stroke Narrative: 61-year-old female with diabetes mellitus type 2, insulin dependent, hypothyroidism, prior right-sided stroke without residual deficit, who presented to the emergency department with left-sided facial numbness, and clumsy left leg. She reports that she was fine when she went to bed last night. When she woke up she went to get out of bed and her left leg was clumsy and numb. She states her leg was dragging a bit. She also felt as though her face had a heavy sensation. This was at approximately 7:30 a.m.. She states she was trying to figure out what was going on and her noted she was unusually quiet as he normally talks a lot mornings. When she explained her symptoms, he stated they needed to go to the emergency department for further evaluation. Emergency department, patient was noted to be hypertensive. Her blood pressures were as high as 201/98. CT scan showed no acute intracranial abnormality. There is chronic left thalamic infarct which was not well visualized. CTA of the head neck revealed no acute intracranial process. No areas of hemodynamically signif icant stenosis, vascular occlusion, or aneurysmal dilatation within the anterior posterior circulation. No areas of hemodynamically significant stenosis, vascular occlusion or aneurysmal dilatation within the neck vasculature. Brain MRI revealed a small subacute infarct of the right thalamus. Admission was recommended. She and had a previous stroke in the past and was prescribed aspirin and statin therapy at that time. She reports she had DC the statins secondary to myalgias. She was on aspirin for quite a while but developed increasing abdominal pain every time she took a dose. She subsequently decreased the dose to 81 mg daily but again after a couple years once again the pain happened every time she took the aspirin so she subsequently discontinued it. 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 She did recently initiate insulin therapy and is currently on 26 units daily. Her doctor recommended she take treated 30 units but she has been nervous to do so. Current reports that her left leg continues to feel a bit clumsy though no longer feels weak. She also continues to feel as though the left side of her face is a bit numb she also reports half of her tongue and she feels numb as well. She is not having any dysphagia. Prior to this morning, she reports she was in her usual state of health. She had been feeling well. She notes she had decreased her exercise during the pandemic and was not taking as good care for diabetes she knows she should. Discharge Providers Provider Date of admission: 12/05/21 13:44 Discharge Date: 12/06/21 Primary care physician: Isabelle Durand MD Consults: 12/05/21 18:06 Consult to Discharge Planning Routine Comment: Consult to Occupational Therapy Evaluate & Treat Comment: Physician Instructions: Evaluate and treat Consult to Physical Therapy Evaluate & Treat Comment: Physician Instructions: Evaluate and Treat Consult to Speech Therapy Evaluate & Treat Comment: Physician Instructions: Evaluate and treat Discharge provider: Bonita Braden MD Summary Hospital Course Discharge Diagnosis: Subacute right thalamic ischemic stroke, stable Three the subQ, insulin requiring, uncontrolled with hyperglycemia with a h emoglobin A1c of 9.9% Hypertension Hypothyroidism Hyperlipidemia Hospital Course: Patient was admitted with left-sided weakness and clumsiness to the leg as well as facial numbness. She was evaluated in the emergency department and had evidence of a small subacute infarct of the right thalamus. She has known history of prior left thalamic stroke. She had previously been prescribed aspirin and statin therapy but she had discontinued them. She ultimately agreed to dual anti-platelet therapy and was placed on 20/1 days of aspirin and Plavix and continuing with aspirin monotherapy thereafter. She was placed on high- intensity statin therapy as well which she was tolerating at discharge. LDL was 128, goal is 70 in the setting of stroke. Echocardiogram was performed and revealed EF of 60-65%, grossly normal appearing right ventricle and probable normal systolic function, no interatrial shunt, no significant valvular abnormalities. NIH score was on at 6:00 p.m. on the evening of admission and 0 thereafter. Patient is discharged in stable condition. She is encouraged to follow-up with neurology stroke clinic for recheck. Additionally, she is controlled to follow-up closely with her primary care provider to work towards better glycemic control. Status at Discharge Cognitive/behavioral status at discharge: at baseline, oriented Functional status at discharge: independent ambulation Overall status at discharge: patient is progressing back to baseline Exam Vital Signs (past 8 hours): - 12/06/21 13:00 Temperature 97.4 F L Pulse Rate 85 Respiratory Rate 19 Blood Pressure 156/79 H Pulse Oximetry 96 Oxygen Flow Rate 0 Oxygen Delivery Method Room Air Oxygen Flow Rate 0 Narrative Exam Narrative: GEN: Alert and oriented x 3, NAD HEENT:NC, Face symmetric CHEST: Respiratory excursions symmetric, CTAB CV: RRR, no M/R/G ABD: Soft, NT/ND, BT present in all 4 quadrants, no organomegaly or masses EXTR: warm, well perfused, no C/C/E SKIN: warm and dry, no rash NEURO: Alert and oriented x 3, nonfocal Objective Labs Result Diagrams: 12/06/21 06:20 12/06/21 06:20 Labs: Laboratory Results - last 24 hr 12/05/21 12/06/21 12/06/21 18:13 06:20 06:20 WBC 6.5 RBC 4.82 Hgb 15.3 Hct 44.6 MCV 92.4 MCH 31.7 MCHC 34.3 RDW 12.7 Plt Count 283 Neut % (Auto) 51.5 Lymph % (Auto) 36.5 [place] % (Auto) 7.7 Eos % (Auto) 3.4 Baso % (Auto) 0.9 Neut # (Auto) 3300 Lymph # (Auto) 2400 [place] # (Auto) 500 Eos # (Auto) 200 Baso # (Auto) 100 Sodium 140 Potassium 4.0 Chloride 104 Carbon Dioxide 28 BUN 16 Creatinine 0.54 Estimated GFR > 60 BUN/Creatinine Ratio 29.6 H Glucose 160 H D Hemoglobin A1c 9.7 H Calcium 9.4 Triglycerides Cholesterol LDL Cholesterol, Calc HDL Cholesterol TSH 12/06/21 12/06/21 06:20 06:20 WBC RBC Hgb Hct MCV MCH MCHC RDW Plt Count Neut % (Auto) Lymph % (Auto) [place] % (Auto) Eos % (Auto) Baso % (Auto) Neut # (Auto) Lymph # (Auto) [place] # (Auto) Eos # (Auto) Baso # (Auto) Sodium Potassium Chloride Carbon Dioxide BUN Creatinine Estimated GFR BUN/Creatinine Ratio Glucose Hemoglobin A1c Calcium Triglycerides 123 Cholesterol 232 H LDL Cholesterol, Calc 128 H HDL Cholesterol 79 H TSH 2.67 [facility] Medical History History of diabetes mellitus History of hypothyroidism History of rosacea History of seasonal allergies History of stroke Trigger finger of right hand Trigger finger, left Surgical History History of ectopic History of third molar tooth extraction Status post appendectomy Status post ovarian cystectomy Status post tubal ligation [place] teeth removed Family History Father Heart disease Mother Heart attack Brother No problems noted. Brother No problems noted. Social History marital status: household members: spouse lives independently: Yes caregiver/support person: No pets and animals: No education level: high school seatbelt use: always helmet use: Yes water heater temp set < 120 deg: Yes working smoke detector in home: Yes fire extinguisher in home: Yes carbon monox detector in home: No firearms in home: No Smoking Status: Never smoker alcohol intake: never substance use type: does not use Discharge Plan Discharge Plan Patient Disposition: Home Provider Discharge Comment: Work on getting better control of you diabetes. Your A1C was 9.7% here. Your LDL cholesterol (bad cholesterol) was 128. The goal is less than 70. Please continue taking atorvastatin as prescribed. You should have follow up labs in about 3 months to recheck your cholesterol You will need to take both aspirin 81 mg daily (over the counter) and clopidogrel (plavix) for 21 days, then continue on aspirin alone. Recommend follow up with your PCP within one week and get a referral to Neurology for stroke follow-up Return to the ER immediately for any new weakness/numbness/trouble speaking/visual changes. Please monitor your blood pressures. You may need your lisinopril increased. Your blood pressures have been high here, but that is typical for strokes. I recommend taking pepcid daily d/t your history of upset stomach w/aspirin. Monitor your stool. If you pass any black/tarry/maroon stool or clots, get immediate care. Follow-up with your PCP about getting both an EGD (upper endoscopy) and colono scopy. Discharge orders & Medications Prescriptions: New atorvastatin [Lipitor] 20 mg Tablet 40 mg PO BEDTIME Qty: 60 0RF clopidogrel 75 mg Tablet 75 mg PO DAILY Qty: 20 0RF aspirin 81 mg Tablet,Chewable 81 mg PO DAILY Qty: 30 0RF Continued levothyroxine 88 mcg tablet 88 mcg PO DAILY Qty: 90 3RF loratadine 10 mg tablet 10 mg PO QDAY Qty: 90 3RF metformin [Glucophage] 1,000 mg tablet 1,000 mg PO BIDCC Qty: 180 3RF lisinopril 2.5 mg tablet 2.5 mg PO QDAY insulin glargine [Lantus Solostar U-100 Insulin] 100 unit/mL (3 mL) insulin pen 26 unit SUBCUT DAILY Rx Instructions: takes at 1400 doxycycline hyclate 100 mg tablet 1 tab PO DAILY PRN (Reason: Rash) Rx Instructions: rosacea No Action (DME) [TEST STRIPS] 0 .Route .MEDSUPPLY Qty: 1 1RF Dose Instruction: As directed Rx Instructions: Use to test blood sugars daily as directed (DME) blood sugar diagnostic [Blood Glucose Test] strip See Dose Instructions .Route .MEDSUPPLY Qty: 100 11RF Dose Instruction: As directed Rx Instructions: Freestyle [place] Light - test blood sugar 3 times daily Follow up/Referrals: Isabelle Durand MD [Primary Care Provider] - Diet/Activity/Treatments Diet: Carb-consistent/Diabetic Activity: tolerated Oxygen: N/A Visit Report/Discharge Packet Instructions: Clopidogrel (Alternative Therapy), Ischemic Stroke Discharge Data Primary Care Provider: Isabelle Durand Quality VTE Deep Vein Thrombosis/Pulmonary Embolism Present on Admission: No
== END 2021-12-06 15:52 | disposition home or self-care (01) ==
LOC: ED 13:15 → AC 14:08
PROVIDERS: Admitting Provider Family Medicine; Emergency Provider Emergency Medicine; Family Provider Family Medicine; PCP Family Medicine; Referring Provider Emergency Medicine; Visit Provider Family Medicine
DX: I67.82 Cerebral ischemia (principal); E11.65 Type 2 diabetes mellitus with hyperglycemia; E78.5 Hyperlipidemia, unspecified; I10 Essential (primary) hypertension; E03.9 Hypothyroidism, unspecified; Z79.4 Long term (current) use of insulin; Z86.73 Personal history of transient ischemic attack (TIA), and cerebral infarction without residual deficits; Z20.822 Contact with and (suspected) exposure to COVID-19
CPT/HCPCS: 36415; 70450; 70496; 70498; 70553; 80048; 80053; 80061; 80305; 80320; 81003; 82550; 82962; 83036; 84443; 84484; 85025; 85610; 85730; 87635; 92523; 93005; 93010; 93306; 96360; 96361; 96372; 97161; 97166; 97530; 99285; C9803; G0378; J1815; Q9967

== ENCOUNTER → 2022-04-22 08:12 | Outpatient (CLI) | payer MEDICARE, OTHER, SELFPAY ==
[2021-12-05 14:00] VITALS: BMI 23.3
[2022-04-22 11:05] LABS: Hemoglobin A1C% w Est Avg Glu 9.3 % (4.0-6.0)
[2022-04-22 11:28] LABS: Cholesterol 249 mg/dL (140-199); HDL Cholesterol 79 mg/dL (40-60); LDL Cholesterol Calculated 143 mg/dL (<100); Triglycerides 135 mg/dL (35-150)
== END ==
PROVIDERS: Family Provider Family Medicine; PCP Family Medicine; Referring Provider Family Medicine; Visit Provider Family Medicine
DX: E11.29 Type 2 diabetes mellitus with other diabetic kidney complication (principal); I63.30 Cerebral infarction due to thrombosis of unspecified cerebral artery; R80.9 Proteinuria, unspecified
CPT/HCPCS: 36415; 80061; 83036

== ENCOUNTER → 2022-11-13 07:08 | Outpatient (CLI) | payer MEDICARE, OTHER, SELFPAY ==
[2021-12-05 14:00] VITALS: BMI 23.3
[2022-11-13 09:00] LABS: Add Manual Diff / Slide Review NO; Basophils Absolute Auto 0 /uL (0-100); Basophils Percent Auto 0.6 % (0-2); Eosinophils Absolute Auto 200 /uL (0-450); Eosinophils Percent Auto 2.9 % (2-4); Hematocrit 43.4 % (36-46); Hemoglobin 14.6 g/dL (12.0-16.0); Lymphocytes Absolute Auto 2000 /uL (1100-4500); Lymphocytes Percent Auto 27.7 % (25-40); Mean Corpuscular HGB Conc 33.5 % (30-36); Mean Corpuscular Hemoglobin 31.9 PG (26-34); Mean Corpuscular Volume 95.1 fL (80-100); Monocytes Absolute Auto 400 /uL (0-900); Monocytes Percent Auto 5.9 % (3-14); Neutrophils Absolute Auto 4600 /uL (1500-7000); Neutrophils Percent Auto 62.9 % (50-75); Platelet Count 269 X10^3/uL (150-400); Red Blood Cell Count 4.57 X10^6/uL (4.0-5.2); Red Cell Distribution Width 13.4 % (11.6-14.8); White Blood Cell Count 7.3 X10^3/uL (4.5-11.0)
[2022-11-13 09:39] LABS: Alanine Aminotransferase 19 IU/L (<35); Albumin 4.5 g/dL (3.5-5.0); Albumin Globulin Ratio 1.3 (1.0-2.8); Alkaline Phosphatase 53 U/L (38-126); Aspartate Aminotransferase 23 IU/L (14-36); BUN Creatinine Ratio 30.2 (6-22); Bilirubin Total 0.4 mg/dL (0.2-1.3); Blood Urea Nitrogen 16 mg/dL (7-17); Calcium 9.9 mg/dL (8.4-10.2); Carbon Dioxide 29 mmol/L (22-32); Chloride 104 mmol/L (98-107); Estimated Glomerular Filt Rate > 60 mL/min (>60); Globulin 3.6 g/dL (1.7-4.1); Glucose 80 mg/dL (80-110); HEMOLYSIS < 15 (0-50); Potassium 5.3 mmol/L (3.4-5.1); Sodium 140 mmol/L (137-145); Total Protein 8.1 g/dL (6.3-8.2)
[2022-11-13 10:04] LABS: TSH w/ Reflex to FT4 0.68 uIU/mL (0.47-4.68)
[2022-11-14 07:10] LABS: x Labcorp Estim. Avg Glu (eAG) 137 mg/dL (.); x Labcorp Hemoglobin A1c 6.4 % (4.8-5.6)
== END ==
PROVIDERS: Family Provider Family Medicine; PCP Family Medicine; Referring Provider Family Medicine; Visit Provider Family Medicine
DX: E03.9 Hypothyroidism, unspecified (principal); E11.3293 Type 2 diabetes mellitus with mild nonproliferative diabetic retinopathy without macular edema, bilateral; Z79.4 Long term (current) use of insulin; I10 Essential (primary) hypertension
CPT/HCPCS: 36415; 80053; 83036; 84443; 85025

== ENCOUNTER → 2023-02-20 07:02 | Outpatient (CLI) | payer MEDICARE, OTHER, SELFPAY ==
[2021-12-05 14:00] VITALS: BMI 23.3
[2023-02-20 07:31] LABS: Add Manual Diff / Slide Review NO; Basophils Absolute Auto 100 /uL (0-100); Basophils Percent Auto 0.8 % (0-2); Eosinophils Absolute Auto 400 /uL (0-450); Eosinophils Percent Auto 4.2 % (2-4); Hematocrit 42.5 % (36-46); Hemoglobin 14.4 g/dL (12.0-16.0); Lymphocytes Absolute Auto 2400 /uL (1100-4500); Lymphocytes Percent Auto 28.6 % (25-40); Mean Corpuscular HGB Conc 33.9 % (30-36); Mean Corpuscular Hemoglobin 31.9 PG (26-34); Mean Corpuscular Volume 94.2 fL (80-100); Monocytes Absolute Auto 400 /uL (0-900); Monocytes Percent Auto 5.1 % (3-14); Neutrophils Absolute Auto 5200 /uL (1500-7000); Neutrophils Percent Auto 61.3 % (50-75); Platelet Count 282 X10^3/uL (150-400); Red Blood Cell Count 4.51 X10^6/uL (4.0-5.2); Red Cell Distribution Width 13.1 % (11.6-14.8); White Blood Cell Count 8.5 X10^3/uL (4.5-11.0)
[2023-02-20 07:53] LABS: Alanine Aminotransferase 20 IU/L (<35); Albumin 4.6 g/dL (3.5-5.0); Albumin Globulin Ratio 1.2 (1.0-2.8); Alkaline Phosphatase 44 U/L (38-126); Aspartate Aminotransferase 25 IU/L (14-36); Bilirubin Total 0.4 mg/dL (0.2-1.3); Blood Urea Nitrogen 20 mg/dL (7-17); Calcium 10.2 mg/dL (8.4-10.2); Carbon Dioxide 25 mmol/L (22-32); Chloride 106 mmol/L (98-107); Estimated Glomerular Filt Rate > 60 mL/min (>60); Globulin 3.8 g/dL (1.7-4.1); Glucose 94 mg/dL (80-110); HEMOLYSIS 36 (0-50); Potassium 5.2 mmol/L (3.4-5.1); Sodium 139 mmol/L (137-145); Total Protein 8.4 g/dL (6.3-8.2)
[2023-02-20 08:02] LABS: Hemoglobin A1C% w Est Avg Glu 6.2 % (4.0-6.0)
[2023-02-20 08:22] LABS: TSH w/ Reflex to FT4 2.26 uIU/mL (0.47-4.68)
== END ==
PROVIDERS: Family Provider Family Medicine; PCP Family Medicine; Referring Provider Family Medicine; Visit Provider Family Medicine
DX: E11.29 Type 2 diabetes mellitus with other diabetic kidney complication (principal); R80.9 Proteinuria, unspecified; E03.9 Hypothyroidism, unspecified
CPT/HCPCS: 36415; 80053; 83036; 84443; 85025

== ENCOUNTER 2024-01-01 11:13 | Emergency (ER) | payer MEDICARE, OTHER, SELFPAY ==
[2021-12-05 14:00] VITALS: BMI 23.3
[2024-01-01] VITALS (25 sets, daily range): BP systolic 198–232; BP diastolic 84–110; PULSE 65–87; RESP 12–22; TEMP 36.3; O2SAT 89–100; BMI 21.6
--- NOTE | 2024-01-01 11:29 | EKG_ITS ---
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
--- NOTE | 2024-01-01 11:31 | ED_ITS ---
HPI - Neuro Symptoms/Deficit General Chief Complaint: Neuro Symptoms/Deficit Stated Complaint: Think she had a stroke right side Time Seen by Provider: 01/01/24 11:28 Source: patient Mode of arrival: EMS History of Present Illness HPI Narrative: Patient 63-year-old female history of at least 2 CVAs 1 in 2016 and 1 in 2021. Presenting today with right-sided weakness ongoing for the last 4 days. She reports it has not getting better she definitely has a difficult time walking with her right leg. After her last stroke in 2021 she was supposed to take Plavix but only for 21 days. She does not take aspirin because it hurts her stomach. She also does not want to take a statin because it hurts her legs. She has been doing diet and exercise and thought she was doing fine. She denies any other complaints. On Anticoagulants: No Related Data Home Medications Medication Instructions Recorded Confirmed doxycycline hyclate 100 mg tablet 1 tab PO DAILY PRN Rash 12/05/21 12/05/21 insulin glargine 100 unit/mL (3 26 unit SUBCUT DAILY 12/05/21 12/05/21 mL) subcutaneous pen (Lantus Solostar U-100 Insulin) lisinopril 2.5 mg tablet 2.5 mg PO QDAY 12/05/21 12/05/21 Previous Rx's Medication Instructions Recorded [TEST STRIPS] #1 pkg 12/28/17 blood sugar diagnostic (Blood #100 ea 01/22/18 Glucose Test strips) levothyroxine 88 mcg tablet 88 mcg PO DAILY #90 tabs 01/22/18 loratadine 10 mg tablet 10 mg PO QDAY #90 tabs 01/22/18 metformin 1,000 mg tablet 1,000 mg PO BIDCC #180 tabs 01/22/18 (Glucophage) aspirin 81 mg chewable tablet 81 mg PO DAILY #30 tabs 12/06/21 atorvastatin 20 mg tablet (Lipitor) 40 mg (2 x 20 mg) PO BEDTIME #60 12/06/21 tabs clopidogrel 75 mg tablet 75 mg PO DAILY #20 tabs 12/06/21 clopidogrel 75 mg tablet 75 mg PO DAILY #20 tabs 01/01/24 lisinopril 20 mg tablet 20 mg PO DAILY #60 tabs 01/01/24 Allergies Allergy/AdvReac Type Severity Reaction Status Date / Time latex [LATEX] Allergy Mild ITCHY RASH Verified 01/01/24 13:03 oxycodone [OXYCODONE] AdvReac Unknown SEVERE Verified 01/01/24 13:03 STOMACH PAIN MEDIPORE TAPE AdvReac Unknown RASH/BLISTE Uncoded 01/01/24 13:03 RS Review of Systems Hematologic/Lymphatic On Anticoagulants: No Patient History Medical History Trigger finger of right hand Trigger finger, left History of seasonal allergies History of stroke History of rosacea History of hypothyroidism History of diabetes mellitus Surgical History History of ectopic Belt teeth removed Status post appendectomy Status post ovarian cystectomy Status post tubal ligation History of third molar tooth extraction Family History Father Heart disease Mother Heart attack Brother No problems noted. Brother No problems noted. Social History marital status: household members: spouse lives independently: Yes caregiver/support person: No pets and animals: No education level: high school seatbelt use: always helmet use: Yes water heater temp set < 120 deg: Yes working smoke detector in home: Yes fire extinguisher in home: Yes carbon monox detector in home: No firearms in home: No Smoking Status: Never smoker alcohol intake: never substance use type: does not use Smoking Status: Never smoker Substance Use Type: does not use Exam Initial Vital Signs Initial Vital Signs: Vital Signs Pulse Rate 86 01/01/24 11:22 Respiratory Rate 12 01/01/24 11:22 Pulse Oximetry 99 01/01/24 11:22 Oxygen Delivery Method Room Air 01/01/24 11:22 GENERAL: Alert pleasant 63-year-old female and in no acute distress. HEENT: Head atraumatic,EOMI, pupils reactive, face symmetric, moist mucous membranes CARDIOVASCULAR: Regular rate and rhythm without murmurs, rubs or gallops. RESPIRATORY: Breath sounds equal bilaterally, no wheezes rales or rhonchi. ABDOMEN: Soft, nontender. Normoactive bowel sounds all 4 quadrants. No guarding or rebound. EXTREMITIES: Normal range of motion, no clubbing or edema. Neurovascularly intact NEUROLOGICAL: Alert and oriented x4 right leg drifts to bed but not on the bed ataxia with right arm slightly decreased sensation in right leg no facial droop left side within normal limits SKIN: Warm, dry, no laceration, no petechiae, no rashes or lesions. Scores NIH Stroke Scale Level of Conciousness: Alert, keenly responsive Ask month/age: Answers both questions correctly. Open/close eyes, close hand: Performs both tasks correctly Best gaze horizontal: Normal Visual nichols: No visual loss Facial palsy: Normal symetrical movement Left arm drift: No drift for full 10 sec Right arm drift: No drift for full 10 sec Left leg drift: No drift for full 5 sec Right leg drift: Drifts down, not to bed Limb ataxia: Present in one limb Sensory on face/arms/legs: Normal, no sensory loss Best language: No aphasia, normal Dysarthria: Normal Extinction or inattention: No abnormality Total NIH Stroke scale score: 2 Course Orders Ordered: ED Orders 01/01/24 11:29 CT angio head and neck Stat CT head/brain wo con Stat EKG-12 Lead Stat 01/01/24 11:30 Complete Blood Count AUTO DIFF Stat Comprehensive Metabolic Panel Stat PTT Partial Thromboplastin Calvin Stat Prothrombin Time INR Stat Troponin & CK Cardiac Panel Stat 01/01/24 13:20 MR head/brain wo con Stat 01/01/24 13:40 Urinalysis and Microscopic Stat Urine Drug Screen, Rapid Stat 01/01/24 14:12 Consult to Physical Therapy Evaluate & Treat 01/01/24 14:25 Consult to [facility] - Director Social Service Stat Discontinued Medications Aspirin (Aspirin Ec 325 Mg Tablet) 325 mg PO NOW ONE Stop: 01/01/24 13:59 Last Admin: 01/01/24 14:25 Dose: 325 mg Documented By: DERREK Clopidogrel Bisulfate (Clopidogrel 75 Mg Tablet) 300 mg PO NOW ONE Stop: 01/01/24 14:24 Last Admin: 01/01/24 14:30 Dose: 300 mg Documented By: DERREK Lisinopril (Lisinopril 5 Mg Tablet) 5 mg PO NOW ONE Stop: 01/01/24 14:24 Last Admin: 01/01/24 14:33 Dose: 5 mg Documented By: DERREK Lisinopril (Lisinopril 10 Mg Tablet) 10 mg PO NOW ONE Stop: 01/01/24 17:38 Last Admin: 01/01/24 17:55 Dose: 10 mg Documented By: SB Vital Signs Vital signs: Vital Signs - 8 hr 01/01/24 11:22 01/01/24 11:27 01/01/24 11:28 Temperature 97.4 F L Pulse Rate 86 87 Respiratory Rate 12 18 Blood Pressure 230/110 H 232/104 H Pulse Oximetry 99 100 Oxygen Delivery Method Room Air Room Air 01/01/24 11:28 01/01/24 11:30 01/01/24 11:30 Temperature Pulse Rate 73 70 Respiratory Rate 16 12 Blood Pressure 211/99 H Pulse Oximetry 100 99 Oxygen Delivery Method 01/01/24 11:48 01/01/24 11:48 01/01/24 12:00 Temperature Pulse Rate 74 69 Respiratory Rate 12 12 Blood Pressure 199/86 H Pulse Oximetry 97 99 Oxygen Delivery Method 01/01/24 12:01 01/01/24 12:01 01/01/24 12:29 Temperature Pulse Rate 71 73 Respiratory Rate 12 22 Blood Pressure 199/84 H Pulse Oximetry 98 95 Oxygen Delivery Method 01/01/24 12:30 01/01/24 12:30 01/01/24 13:00 Temperature Pulse Rate 73 Respiratory Rate 13 Blood Pressure 198/90 H 199/88 H Pulse Oximetry 96 Oxygen Delivery Method Room Air 01/01/24 13:00 01/01/24 13:30 01/01/24 13:30 Temperature Pulse Rate 69 74 Respiratory Rate 16 22 Blood Pressure 227/98 H Pulse Oximetry 95 98 Oxygen Delivery Method 01/01/24 13:44 01/01/24 14:00 01/01/24 14:30 Temperature Pulse Rate 71 66 74 Respiratory Rate 18 13 16 Blood Pressure 209/102 H 215/100 H 224/95 H Pulse Oximetry 98 95 96 Oxygen Delivery Method Room Air 01/01/24 14:30 01/01/24 14:33 01/01/24 15:27 Temperature Pulse Rate 71 77 73 Respiratory Rate 18 Blood Pressure 224/95 H Pulse Oximetry 96 89 L Oxygen Delivery Method 01/01/24 15:28 01/01/24 15:28 01/01/24 15:30 Temperature Pulse Rate 77 73 Respiratory Rate Blood Pressure 217/100 H Pulse Oximetry 96 97 Oxygen Delivery Method 01/01/24 15:30 01/01/24 16:00 01/01/24 16:30 Temperature Pulse Rate 68 65 Respiratory Rate 17 18 Blood Pressure 208/94 H 200/92 H 199/92 H Pulse Oximetry 97 96 Oxygen Delivery Method 01/01/24 17:00 01/01/24 17:30 01/01/24 17:43 Temperature Pulse Rate 71 67 70 Respiratory Rate 17 22 21 Blood Pressure 205/100 H 200/98 H Pulse Oximetry 96 98 97 Oxygen Delivery Method Room Air 01/01/24 17:44 01/01/24 17:44 01/01/24 17:55 Temperature Pulse Rate 69 78 Respiratory Rate 16 20 Blood Pressure 200/98 H Pulse Oximetry 96 Oxygen Delivery Method Room Air MDM - Neuro Symptoms/Deficit Lab Data 01/01/24 11:30 01/01/24 11:30 Labs: Lab Results 01/01/24 01/01/24 01/01/24 Range/Units 11:30 13:40 13:40 WBC 7.6 (4.5-11.0) X10^3/uL RBC 4.63 (4.0-5.2) X10^6/uL Hgb 14.5 (12.0-16.0) g/dL Hct 43.3 (36-46) % MCV 93.4 (80-100) fL MCH 31.4 (26-34) PG MCHC 33.6 (30-36) % RDW 13.2 (11.6-14.8) % Plt Count 285 (150-400) X10^3/uL Neut % (Auto) 56.8 (50-75) % Lymph % (Auto) 34.8 (25-40) % [place] % (Auto) 6.4 (3-14) % Eos % (Auto) 1.5 L (2-4) % Baso % (Auto) 0.5 (0-2) % Neut # (Auto) 4300 (2745-3802) /uL Lymph # (Auto) 2700 (4341-0992) /uL [place] # (Auto) 500 (0-900) /uL Eos # (Auto) 100 (0-450) /uL Baso # (Auto) 0 (0-100) /uL PT 11.0 (9.4-12.5) SECONDS INR 1.0 (0.9-1.3) APTT 37 H (25.1-36.5) SECONDS Sodium 136 L (137-145) mmol/L Potassium 4.4 (3.4-5.1) mmol/L Chloride 102 (98-107) mmol/L Carbon Dioxide 24 (22-32) mmol/L BUN 19 H (7-17) mg/dL Creatinine 0.72 (0.52-1.04) mg/dL Estimated GFR > 60 (>60) mL/min BUN/Creatinine Ratio 26.4 H (6-22) Glucose 172 H (80-110) mg/dL Calcium 10.2 (8.4-10.2) mg/dL Total Bilirubin 0.6 (0.2-1.3) mg/dL AST 26 (14-36) IU/L ALT 19 (<35) IU/L Alkaline Phosphatase 60 (38-126) U/L Total Creatine Kinase 89 (30-135) U/L Troponin I < 0.012 (0.01-0.034) ng/mL Total Protein 8.8 H (6.3-8.2) g/dL Albumin 5.0 (3.5-5.0) g/dL Globulin 3.8 (1.7-4.1) g/dL Albumin/Globulin Ratio 1.3 (1.0-2.8) Urine Color Yellow Urine Appearance Clear Urine pH 5.5 Normal (4.5-8.0) Ur Specific [place] <=1.005 (1.000-1.035) Urine Protein Trace H (Negative) Urine Glucose (UA) Negative (Negative) g/dL Urine Ketones Trace H (NEGATIVE) Urine Occult Blood Negative (Negative) Urine Nitrate Negative (Negative) Urine Bilirubin Negative (NEGATIVE) Urine Urobilinogen 0.2 (0.2) E.U./dL Ur Leukocyte Esterase Trace H (NEGATIVE) Urine RBC None seen (0-5/HPF) Urine WBC 1-5/hpf (0-5/HPF) Ur Squamous Epith Cells 0-1 /hpf (0-5/HPF) Urine Bacteria None seen (None) Ur Culture Indicated? Cult not indicated Vol Urine Centrifuged 10ml (spun) U Opiates 300ng/mL cut Negative (Negative) Ur Oxycodone Screen Negative (Negative) Urine Methadone Screen Negative (Negative) Ur Barbiturates Screen Negative (Negative) U Tricyclic Antidepress Negative (Negative) Ur Phencyclidine Scrn Negative (Negative) Ur Amphetamines Screen Negative (Negative) U Methamphetamines Scrn Negative (Negative) Ur MDMA Scrn (Ecstasy) Negative (Negative) U Benzodiazepines Scrn Negative (Negative) Urine Cocaine Screen Negative (Negative) U Marijuana (THC) Screen Negative (Negative) Urine Specific [place] Normal (Normal) Ur Creatinine Normal (Normal) Urine Dip Bedside Urine Glucose Negative Bedside Urine Bilirubin - Negative Bedside Urine Ketone +/- 5 Urine Specific [place] 1.005 Bedside Urine Occult Blood - Negative Bedside Urine pH 6.0 Bedside Urine Protein - Negative Bedside Urine Urobilinogen - Negative Bedside Urine Nitrite - Negative Bedside Urine Leukocytes +/- 15 Esterase Imaging Data MR Brain: Radiologist's Impression: PROCEDURE: MR HEAD/BRAIN WO CON INDICATIONS: right side weakness TECHNIQUE: Non-contrast axial T1 spin echo, axial T2 fast spin echo, sagittal and axial FLAIR, coronal T2 fast spin echo, axial gradient echo, axial diffusion and ADC through the brain. COMPARISON: [facility], MR, BRAIN WITHOUT CONTRAST, 03/27/2017, 10:46. FINDINGS: Image quality: Excellent. CSF spaces: Ventricles appear symmetric in size and shape. Basal cisterns are patent. No extra-axial fluid collections. Brain: No intracranial bleeds or mass effects. There is cerebral volume loss for age. There are very minimal, age-appropriate periventricular and deep white matter chronic small vessel ischemic changes. Brainstem appears normal. There is a tiny area abnormal increased signal on the diffusion-weighted sequence in the anterior medial aspect of the right medulla, in the anterior column. Findings likely represent acute tiny infarct. Less likely is artifact. No other areas of restricted water diffusion are identified. The area of small focal lacunar infarction on the previous MRI in the left thalamus is barely perceptible on the current study. Normal intravascular flow voids are present. Skull and face: Calvarial bone marrow is normal in signal. Orbits are normal. Sinuses: Sinuses and mastoids are clear. IMPRESSION: 1. Findings most likely represent a tiny area of acute infarction in the right anterior column of the medulla. 2. Previous area of lacunar infarction in the left thalamus is barely perceptible. 3. Otherwise unremarkable study for patient age. Dictated by: Eulalio Galvan M.D. on 01/01/2024 at 16:07 Approved by: Eulalio Galvan M.D. on 01/01/2024 at 16:10 CTA - brain/neck: Radiologist's Impression: PROCEDURE: CT ANGIO HEAD AND NECK INDICATIONS: Right-sided deficit x4 days TECHNIQUE: After the administration of intravenous contrast, 1 mm thick sections acquired from the aortic arch through the [place]. 3-dimensional bnistbo-trneodgfr-flzrxrrxqz (MIP) and/or volume rendering reformats were acquired of the central intracranial vasculature and neck separately. For radiation dose reduction, the following was used: automated exposure control, adjustment of mA and/or kV according to patient size. COMPARISON: [facility], MR, MR HEAD/BRAIN WO/W CON, 12/05/2021, 15:11. [facility], CT, CT HEAD/BRAIN WO CON, 01/01/2024, 11:34. [facility], CT, CT ANGIO HEAD AND NECK, 12/05/2021, 11:00. FINDINGS: Image quality: Limited by bolus timing, with venous contamination. There is streak artifact seen through the level of the shoulders. BRAIN: CSF spaces: Ventricles are normal in size and shape. Basal cisterns are patent. No extra-axial fluid collections. Brain: No significant abnormality of the brain can be seen. Pineal region calcification can be seen. Skull and face: Calvarium and facial bones appear intact, without suspicious lesions. Orbits appear normal. Sinuses: Sinuses and mastoids are clear. HEAD CT ANGIOGRAPHY: Anterior circulation: Intracranial internal carotid arteries demonstrate atherosclerotic irregularity and calcification, with 60-70% narrowing on the left. The flow within the paired anterior cerebral arteries is normal and symmetric. The flow within the middle cerebral arteries is normal and symmetric. The anterior communicating artery is not well seen. No aneurysms are seen. Posterior circulation: Visualized portions of the vertebral arteries demonstrate normal caliber, and join to form a normal appearing basilar artery. Flow within the posterior cerebral arteries is normal and symmetric. No aneurysms are seen. NECK CT ANGIOGRAPHY: Carotid system: The great vessels demonstrate a conventional anatomy as they arise from the aortic arch. The origins of the common carotid arteries appear patent. The common carotid arteries demonstrate normal caliber and courses. The bifurcation regions are both widely patent. The internal carotid arteries demonstrate normal calibers and courses. Posterior circulation: The origins of the vertebral arteries both appear widely patent. The more superior extracranial portions of both vertebral arteries also demonstrate normal courses and calibers. The left vertebral artery is dominant to the right. Soft tissues: Visualized neck soft tissues demonstrate no suspicious abnormalities. Bones: No suspicious bony lesions. Visualized cervical spine appears normally aligned. IMPRESSION: No significant intracranial arterial abnormality is seen. However, there is 60 70% narrowing seen involving the left intracranial internal carotid artery. No significant abnormality is seen within the arteries of the neck. Any quantitative measurements of stenosis were performed using NASCET criteria. Dictated by: Antwon Boland M.D. on 01/01/2024 at 11:14 CT scan - head: Radiologist's Impression: PROCEDURE: CT HEAD/BRAIN WO CON INDICATIONS: right side deficit times 4 days TECHNIQUE: Noncontrast 4.5 mm thick angled axial sections acquired from the foramen magnum to the vertex, with coronal and sagittal reformats. For radiation dose reduction, the following was used: automated exposure control, adjustment of mA and/or kV according to patient size. COMPARISON: None. FINDINGS: Image quality: Diagnostic. CSF spaces: Basal cisterns are patent. No extra-axial fluid collections. The ventricles are symmetric in size and shape. Brain: No intracranial bleeds or masses. There is cerebral volume loss for age, with resultant ventricular and sulcal prominence. There are periventricular and deep white matter chronic small vessel ischemic changes. There is intracranial internal carotid artery atherosclerosis. Skull and face: Calvarium and visualized facial bones appear intact, without suspicious lesions. Sinuses: Visualized sinuses and mastoids are clear. IMPRESSION: No acute intracranial pathology. Comment: Consider brain MRI with and without contrast. Dictated by: Eulalio Galvan M.D. on 01/01/2024 at 11:52 ECG Data Attestation: I personally reviewed and interpreted this ECG as follows: Prior ECG tracings: available for review Interpretation: Sinus rhythm rate 79 CO interval 166 QRS [address] changes no T-wave inversions MDM Narrative Medical decision making narrative: MDM CC: Probable stroke Complicating co-morbidities: Noncompliance with aspirin, 2 prior stroke hypertension hyperlipidemia Data collected from: Medical records reviewed: Yes to prior admission Differential considered: CVA, ataxia, intracranial hemorrhage Exam documented above, pertinent findings include: Ataxia in right arm, some right leg weakness drifting to gurney Lab Test results independently reviewed as above. Pertinent findings: [ ] Independently reviewed EKG as above Imaging studies independently reviewed: Head CT does not show any intracranial hemorrhage, CT angio does show 60-70% narrowing of the left intracranial carotid artery an MRI shows tiny area of acute infarction right anterior column of the medulla Consultations: 14:00 Dr. Juarez updated patient's symptoms test results reports that patient is greater than 2 days past having a stroke and can have aspirin Plavix and physical therapy at home. He is well aware of her persistent hypertension and says to double lisinopril. Treatments: Aspirin, Plavix lisinopril Re-evaluations: She is able to get up with minimal assistance to a bedside commode she is moving her leg on the bed overall doing well. Blood pressure is persistently high. Discussion: Patient is 63-year-old female presenting today with right-sided weakness ongoing for the last 4 days. MRI does confirm acute stroke. She is able to get around in the ED and she is willing to take aspirin. She is given enteric-coated aspirin along with 300 mg of Plavix. Attempted to physical therapy to evaluate patient in the ED but despite calling them before they left for the day they were unable to make it. Social work involved. Will help set up home physical therapy for her. Social work to evaluate patient Patient is willing to take aspirin she is actually on lisinopril 10 mg at home so I will double you will also get on Plavix for 21 days Discharge Plan Departure Patient Disposition: Home Clinical Impression: CVA (cerebral vascular accident) Instructions: DI for Stroke-Ischemic Activity Restrictions/Additional Instructions: *You have been diagnosed with stroke *What to do: You have had another stroke. You will need physical therapy You also have 60-70% left internal carotid stenosis YOU MUST TAKE YOUR MEDICATION OR YOU WILL HAVE ANOTHER STROKE *Continue to take medications as directed Aspirin with enteric coated 81 mg once daily Clopidogrel 75 mg once daily Lisinopril 20 mg daily *Follow up with your primary care provider in 2-3 days or call [phone] CALL YOUR DOCTOR YOU NEED APPOINTMENT ZAID *Return to ER if you should have increasing weakness confusion facial droop visual change speech difficulty or any new, worsening or concerning symptoms Prescriptions: New clopidogrel 75 mg tablet 75 mg PO DAILY Qty: 20 0RF lisinopril 20 mg tablet 20 mg PO DAILY Qty: 60 0RF No Action (DME) [TEST STRIPS] 0 .Route .MEDSUPPLY Qty: 1 1RF Dose Instruction: As directed Rx Instructions: Use to test blood sugars daily as directed (DME) blood sugar diagnostic [Blood Glucose Test] strip See Dose Instructions .Route .MEDSUPPLY Qty: 100 11RF Dose Instruction: As directed Rx Instructions: Freestyle [place] - test blood sugar 3 times daily levothyroxine 88 mcg tablet 88 mcg PO DAILY Qty: 90 3RF loratadine 10 mg tablet 10 mg PO QDAY Qty: 90 3RF metformin [Glucophage] 1,000 mg tablet 1,000 mg PO BIDCC Qty: 180 3RF lisinopril 2.5 mg tablet 2.5 mg PO QDAY insulin glargine [Lantus Solostar U-100 Insulin] 100 unit/mL (3 mL) insulin pen 26 unit SUBCUT DAILY Rx Instructions: takes at 1400 doxycycline hyclate 100 mg tablet 1 tab PO DAILY PRN (Reason: Rash) Rx Instructions: rosacea atorvastatin [Lipitor] 20 mg Tablet 40 mg PO BEDTIME Qty: 60 0RF clopidogrel 75 mg Tablet 75 mg PO DAILY Qty: 20 0RF aspirin 81 mg Tablet,Chewable 81 mg PO DAILY Qty: 30 0RF Referrals: Isabelle Durand MD [Primary Care Provider] - Stand Alone Forms: Patient Portal/API
[2024-01-01 11:52] LABS: Add Manual Diff / Slide Review NO; Basophils Absolute Auto 0 /uL (0-100); Basophils Percent Auto 0.5 % (0-2); Eosinophils Absolute Auto 100 /uL (0-450); Eosinophils Percent Auto 1.5 % (2-4); Hematocrit 43.3 % (36-46); Hemoglobin 14.5 g/dL (12.0-16.0); Lymphocytes Absolute Auto 2700 /uL (1100-4500); Lymphocytes Percent Auto 34.8 % (25-40); Mean Corpuscular HGB Conc 33.6 % (30-36); Mean Corpuscular Hemoglobin 31.4 PG (26-34); Mean Corpuscular Volume 93.4 fL (80-100); Monocytes Absolute Auto 500 /uL (0-900); Monocytes Percent Auto 6.4 % (3-14); Neutrophils Absolute Auto 4300 /uL (1500-7000); Neutrophils Percent Auto 56.8 % (50-75); Platelet Count 285 X10^3/uL (150-400); Red Blood Cell Count 4.63 X10^6/uL (4.0-5.2); Red Cell Distribution Width 13.2 % (11.6-14.8); White Blood Cell Count 7.6 X10^3/uL (4.5-11.0)
[2024-01-01 12:00] LABS: PTT Partial Thromboplastin Tim 37 SECONDS (25.1-36.5)
[2024-01-01 12:01] LABS: Alanine Aminotransferase 19 IU/L (<35); Albumin Globulin Ratio 1.3 (1.0-2.8); Alkaline Phosphatase 60 U/L (38-126); Aspartate Aminotransferase 26 IU/L (14-36); BUN Creatinine Ratio 26.4 (6-22); Bilirubin Total 0.6 mg/dL (0.2-1.3); Blood Urea Nitrogen 19 mg/dL (7-17); Calcium 10.2 mg/dL (8.4-10.2); Carbon Dioxide 24 mmol/L (22-32); Chloride 102 mmol/L (98-107); Creatine Kinase 89 U/L (30-135); Estimated Glomerular Filt Rate > 60 mL/min (>60); Globulin 3.8 g/dL (1.7-4.1); Glucose 172 mg/dL (80-110); HEMOLYSIS < 15 (0-50); Potassium 4.4 mmol/L (3.4-5.1); Sodium 136 mmol/L (137-145); Total Protein 8.8 g/dL (6.3-8.2)
[2024-01-01 12:13] LABS: Troponin I < 0.012 ng/mL (0.01-0.034)
--- NOTE | 2024-01-01 13:20 | DI.MRI.S_ITS ---
PROCEDURE: MR HEAD/BRAIN WO CON INDICATIONS: right side weakness TECHNIQUE: Non-contrast axial T1 spin echo, axial T2 fast spin echo, sagittal and axial FLAIR, coronal T2 fast spin echo, axial gradient echo, axial diffusion and ADC through the brain. COMPARISON: [facility], MR, BRAIN WITHOUT CONTRAST, 03/27/2017, 10:46. FINDINGS: Image quality: Excellent. CSF spaces: Ventricles appear symmetric in size and shape. Basal cisterns are patent. No extra-axial fluid collections. Brain: No intracranial bleeds or mass effects. There is cerebral volume loss for age. There are very minimal, age-appropriate periventricular and deep white matter chronic small vessel ischemic changes. Brainstem appears normal. There is a tiny area abnormal increased signal on the diffusion-weighted sequence in the anterior medial aspect of the right medulla, in the anterior column. Findings likely represent acute tiny infarct. Less likely is artifact. No other areas of restricted water diffusion are identified. The area of small focal lacunar infarction on the previous MRI in the left thalamus is barely perceptible on the current study. Normal intravascular flow voids are present. Skull and face: Calvarial bone marrow is normal in signal. Orbits are normal. Sinuses: Sinuses and mastoids are clear. IMPRESSION: 1. Findings most likely represent a tiny area of acute infarction in the right anterior column of the medulla. 2. Previous area of lacunar infarction in the left thalamus is barely perceptible. 3. Otherwise unremarkable study for patient age. Dictated by: Eulalio Galvan M.D. on 01/01/2024 at 16:07 Approved by: Eulalio Galvan M.D. on 01/01/2024 at 16:10
[2024-01-01 13:55] LABS: Appearance Urine UA CLEAR; Bilirubin Urine UA NEGATIVE (NEGATIVE); Color Urine UA YELLOW; Glucose Urine UA NEGATIVE (Negative); Ketones Urine UA TRACE (NEGATIVE); Leukocyte Esterase Urine UA TRACE (NEGATIVE); Nitrite Urine UA NEGATIVE (Negative); Occult Blood Urine UA NEGATIVE (Negative); Protein Urine UA TRACE (Negative); Specific Gravity Urine UA <=1.005 (1.000-1.035); Urobilinogen Urine UA 0.2 E.U./dL (0.2)
[2024-01-01 13:59] LABS: pH Urine UA 5.5 (4.5-8.0)
[2024-01-01 14:04] LABS: UR Morphine/Opiate cutoff 300 Negative (Negative); Ur Creatinine Normal (Normal); Ur Specific Gravity Normal (Normal); Urine Amphetamines Negative (Negative); Urine Barbiturates Negative (Negative); Urine Benzodiazepines Negative (Negative); Urine Cocaine Negative (Negative); Urine MDMA Negative (Negative); Urine Methadone Negative (Negative); Urine Methamphetamines Negative (Negative); Urine Oxycodone Negative (Negative); Urine Phencyclidine Negative (Negative); Urine Tetrahydrocannabinol Negative (Negative); Urine Tricyclic Antidepressant Negative (Negative); Urine pH Normal (Normal)
[2024-01-01 14:07] LABS: Bacteria Urine None Seen; Culture Indicated Urine Cult Not Indicated; RBC Urine None Seen (0-5/HPF); Squamous Epithelial Cell Urine 0-1 /HPF (0-5/HPF); Urine Volume 10mL (spun); WBC Urine 1-5/HPF (0-5/HPF)
--- NOTE | 2024-01-01 14:13 | P.CALLCOV_ITS ---
Call Coverage Note Note Narrative of Care Provided: 63 F with pmh diabetes mellitus type 2, insulin dependent, hypothyroidism, prior CVA and prior subsequent TIA who presented to the emergency department with right sided weakness for the past 4 days. She has had previous stroke workup with echo showing no PFO and was to be on lifelong asa and statin therapy which she has stopped. Given stability for the past 4 days, admission is dependent on patient's mobility. If she can tolerate outpatient evaluation /therapy there is no need for an observation admission at this time. For her BP, she was previously on low dose lisinopril. During her previous admission 2 years ago for TIA her BP was still elevated averaging around 150/70 prior to discharge. Recommend reinitiation of lisinopril with an increased dose. At this time would presume this is more chronic hypertension and should be managed like chronic hyp ertension. Ideally her BP would be better but would manage this like asymptomatic hypertension with initiation of medication and close outpatient follow up with home monitoring if the patient is able. Should her symptoms change or after possible therapy evaluation she cannot return home, please reach out for repeat evaluation for admission.
[2024-01-01] MEDS: ASPIRIN EC 325 MG TABLET PO (14:25)
[2024-01-01] MEDS: CLOPIDOGREL 75 MG TABLET 300 MG PO (14:30)
[2024-01-01] MEDS: lisinopriL 5 MG TABLET PO (14:33)
[2024-01-01] MEDS: lisinopriL 10 MG TABLET PO (17:55)
--- NOTE | 2024-01-02 11:42 | CM.SWNOTE ---
ED SLASHER SAWYER Note: Patient is a 63yo female, resident of [place], presents to the ED due to CVA symptoms. Pt has a history of CVA and diabetes type 2. Pt lives with her and adult child at home. ED SLASHER SAWYER was consulted to assist with possible referral for home health/PT as pt was experiencing weakness in right leg. Per ED Provider, pt is medically stable and could discharge home, would benefit from continued PT/OT due to CVA symptoms. Patient's primary care provider is Dr. Isabelle Davis and insurance is Medicare and [employer]. ED SLASHER SAWYER entered room, introduced self and role. Pt was found in hospital stretcher, alert and oriented, cooperative with assessment. Pt was able to verbalize agreement with plans for home health PT/OT to assist with increasing mobility strength. ED SLASHER SAWYER provided brochures for both HH agencies that service [facility] and pt stated preference for [facility] ED Provider Dr. Hook, agreed with plans for home health, signed orders. ED SLASHER SAWYER sent clinical referral to [facility] via secure email, pending acceptance. Plan: Pt discharged home with spouse to transport. Pt to follow up with PCP and home health agency for care plans. PROMISE Ruth
== END 2024-01-01 18:04 | disposition home or self-care (01) ==
PROVIDERS: Emergency Provider Emergency Medicine; Family Provider Family Medicine; PCP Family Medicine
DX: I63.9 Cerebral infarction, unspecified (principal); R29.702 NIHSS score 2; Z79.01 Long term (current) use of anticoagulants; Z79.899 Other long term (current) drug therapy
CPT/HCPCS: 36415; 70450; 70496; 70498; 70551; 80053; 80305; 81001; 81003; 82550; 84484; 85025; 85610; 85730; 93005; 99285; Q9967

== ENCOUNTER → 2024-01-29 07:07 | Outpatient (CLI) | payer MEDICARE, OTHER, SELFPAY ==
[2021-12-05 14:00] VITALS: BMI 23.3
[2024-01-29 08:09] LABS: Add Manual Diff / Slide Review NO; Basophils Absolute Auto 100 /uL (0-100); Basophils Percent Auto 1.1 % (0-2); Eosinophils Absolute Auto 200 /uL (0-450); Eosinophils Percent Auto 3.5 % (2-4); Hematocrit 40.6 % (36-46); Lymphocytes Absolute Auto 1700 /uL (1100-4500); Lymphocytes Percent Auto 31.9 % (25-40); Mean Corpuscular HGB Conc 34.6 % (30-36); Mean Corpuscular Hemoglobin 32.6 PG (26-34); Mean Corpuscular Volume 94.1 fL (80-100); Monocytes Absolute Auto 400 /uL (0-900); Monocytes Percent Auto 8.2 % (3-14); Neutrophils Absolute Auto 2900 /uL (1500-7000); Neutrophils Percent Auto 55.3 % (50-75); Platelet Count 251 X10^3/uL (150-400); Red Blood Cell Count 4.32 X10^6/uL (4.0-5.2); Red Cell Distribution Width 13.8 % (11.6-14.8); White Blood Cell Count 5.2 X10^3/uL (4.5-11.0)
[2024-01-29 08:24] LABS: Hemoglobin A1C% w Est Avg Glu 6.5 % (4.0-6.0)
[2024-01-29 08:45] LABS: Alanine Aminotransferase 21 IU/L (<35); Albumin 4.3 g/dL (3.5-5.0); Albumin Globulin Ratio 1.3 (1.0-2.8); Alkaline Phosphatase 57 U/L (38-126); Aspartate Aminotransferase 24 IU/L (14-36); BUN Creatinine Ratio 46.3 (6-22); Bilirubin Total 0.3 mg/dL (0.2-1.3); Blood Urea Nitrogen 31 mg/dL (7-17); Calcium 10.4 mg/dL (8.4-10.2); Carbon Dioxide 27 mmol/L (22-32); Chloride 107 mmol/L (98-107); Estimated Glomerular Filt Rate > 60 mL/min (>60); Globulin 3.4 g/dL (1.7-4.1); Glucose 133 mg/dL (80-110); HEMOLYSIS < 15 (0-50); Potassium 4.8 mmol/L (3.4-5.1); Sodium 138 mmol/L (137-145); Total Protein 7.7 g/dL (6.3-8.2)
[2024-01-29 09:11] LABS: TSH w/ Reflex to FT4 0.63 uIU/mL (0.47-4.68)
== END ==
PROVIDERS: Family Provider Family Medicine; PCP Family Medicine; Referring Provider Family Medicine; Visit Provider Family Medicine
DX: E03.9 Hypothyroidism, unspecified (principal); E11.3293 Type 2 diabetes mellitus with mild nonproliferative diabetic retinopathy without macular edema, bilateral; Z79.4 Long term (current) use of insulin; I10 Essential (primary) hypertension
CPT/HCPCS: 36415; 80053; 83036; 84443; 85025

== ENCOUNTER → 2025-02-20 08:17 | Outpatient (CLI) | payer MEDICARE, OTHER, SELFPAY ==
[2021-12-05 14:00] VITALS: BMI 23.3
[2025-02-20 09:06] LABS: Microalbumi Creatinin Ratio Ur 110.0 ug/mg CR (<30)
[2025-02-20 09:12] LABS: Hemoglobin A1C% w Est Avg Glu 6.8 % (4.0-6.0)
[2025-02-20 09:46] LABS: TSH w/ Reflex to FT4 1.13 uIU/mL (0.47-4.68)
== END ==
LOC: LAB 08:19
PROVIDERS: Family Provider Family Medicine; PCP Family Medicine; Referring Provider Family Medicine; Visit Provider Family Medicine
DX: E11.29 Type 2 diabetes mellitus with other diabetic kidney complication (principal); R80.9 Proteinuria, unspecified
CPT/HCPCS: 36415; 82043; 82570; 83036; 84443